=== PATIENT | female | born 1980 | race Caucasian/White ===

== ENCOUNTER 2022-08-30 09:18 | Emergency (ER) | payer MEDICARE, MEDICAID, SELFPAY ==
[2022-08-30 09:32] VITALS: BP 118/75; PULSE 100; RESP 18; TEMP 36.8; O2SAT 96
--- NOTE | 2022-08-30 10:07 | ED.LOWEXIN ---
HPI - Extremity Injury (Lower) General Chief Complaint: Extremity Injury, Lower Stated Complaint: Toe Injury Source: patient and RN notes reviewed History of Present Illness HPI Narrative: 42-year-old female presents to urgent care with complaints of right pinky toe pain. Patient states last night she accidentally stubbed her right pinky toe on a cinder block. Patient states she is unable to get her work shoes on today because of her symptoms. Patient denies any other injury. Denies any numbness or tingling. Patient has ice her toe and taking Aleve at home. Some parts of this dictation were generated by voice recognition software and may contain typographical and/or grammatical inaccuracies. Related Data Home Medications Medication Instructions Recorded Confirmed buprenorphine HCl 8 mg sublingual 8 mg sublingual DAILY 08/30/22 08/30/22 tablet gabapentin 600 mg tablet 600 mg PO TID 08/30/22 08/30/22 lamotrigine 100 mg tablet 100 mg PO DAILY 08/30/22 08/30/22 linaclotide 72 mcg capsule 72 mcg PO DAILY 08/30/22 08/30/22 (Linzess) loratadine 10 mg tablet (Claritin) 10 mg PO DAILY 08/30/22 08/30/22 quetiapine 200 mg tablet 200 mg PO BID 08/30/22 08/30/22 Allergies Allergy/AdvReac Type Severity Reaction Status Date / Time No Known Allergies Allergy Verified 08/30/22 09:47 Review of Systems Review of Systems: CONSTITUTIONAL: Denies fever, chills, or sweats. EYES: Denies visual changes, redness, or discharge. ENT: Denies otalgia and sore throat CARDIOVASCULAR: Denies chest pain, palpitations, or edema. RESPIRATORY: Denies cough or dyspnea. GASTROINTESTINAL: Denies abdominal pain, nausea, vomiting, or diarrhea. GENITOURINARY: Denies dysuria or hematuria. SKIN: Denies rash or itching. MUSCULOSKELETAL: Right pinky toe pain NEUROLOGIC: Denies headache, numbness, or weakness. Pertinent positives per HPI. PMFSH Comments At the time of my signature, I reviewed and agree with the nursing past medical, surgical, social, and family history. There is no relevant family history pertinent to the patient complaint. Exam Narrative: GENERAL: This is a well-nourished, well-developed patient, in no apparent distress. HEAD: normocephalic, atraumatic. EYES: Sclera clear/white. Vision is grossly intact. EARS: External ears normal, auditory canals clear and without drainage. Hearing grossly intact. NOSE: External nose normal with no obvious nasal discharge, nares without redness, no rhinorrhea. THROAT: Mucous membranes moist, posterior pharynx clear. NECK: Neck supple, non-tender without lymphadenopathy, masses or thyromegaly. CARDIOVASCULAR: Regular rate RESPIRATORY: No respiratory distress. SKIN: warm, intact with no suspicious lesions or rash, good texture and turgor. NEURO: awake, alert, and oriented to person, place and time. There were no obvious focal neurologic abnormalities. EXTREMITIES: Right pinky toe edema and tenderness. BACK: Nontender without deformity or crepitus. No flank tenderness. Course Course Level of Care: Express Care Visit Vital Signs Vital signs: Vital Signs Temperature 98.2 F 08/30/22 09:32 Pulse Rate 100 08/30/22 09:32 Respiratory Rate 18 08/30/22 09:32 Blood Pressure 118/75 08/30/22 09:32 Pulse Oximetry 96 08/30/22 09:32 Oxygen Delivery Room Air 08/30/22 09:32 Temperature 98.2 F 08/30/22 09:32 Pulse Rate 100 08/30/22 09:32 Respiratory Rate 18 08/30/22 09:32 Blood Pressure 118/75 08/30/22 09:32 Pulse Oximetry 96 08/30/22 09:32 Oxygen Delivery Room Air 08/30/22 09:32 reviewed MDM - Extremity Injury (Lower) MDM Narrative Medical decision making narrative: Use the RICE method at home. May take ibuprofen and/or Tylenol if needed. If symptoms persist in 1 week after conservative treatment, follow-up with specialist. Pt refused xray. States she is here just for a work note. Differential Diagnosis Differential diagnosis: Likely fract
== END 2022-08-30 10:10 | disposition home or self-care (01) ==
PROVIDERS: Emergency Provider Nurse Practitioner Family; PCP Nurse Practitioner Family
DX: S99.921A Unspecified injury of right foot, initial encounter (principal); W22.8XXA Striking against or struck by other objects, initial encounter; J44.9 Chronic obstructive pulmonary disease, unspecified; G62.9 Polyneuropathy, unspecified; F31.9 Bipolar disorder, unspecified
CPT/HCPCS: 99213; G0463

== ENCOUNTER 2022-09-17 16:04 | Emergency (ER) | payer MEDICARE, MEDICAID, SELFPAY ==
[2022-09-17 16:10] VITALS: BP 136/76; PULSE 99; RESP 20; TEMP 36.4; O2SAT 95
--- NOTE | 2022-09-17 16:10 | ED.SKABFB ---
HPI - Skin/Abscess/Foreign Bdy General Chief complaint: Skin/Abscess/Foreign Body Stated complaint: irritation on buttocks Source: patient and RN notes reviewed History of Present Illness HPI narrative: 42 yo F presents to urgent care stating she thinks she has shingles again. Pt states she woke up this morning with an itchy, burning, rash to her buttocks. Pt states every time she gets this, it's shingles. Pt states she has had it about 5-6 times in the past, last time being 6 months ago. Pt states it occurs in the same spot every time. Denies any fevers, chills, chest pain, SOB, or vomiting. Related Data Home Medications Medication Instructions Recorded Confirmed buprenorphine HCl 8 mg sublingual 8 mg sublingual DAILY 08/30/22 08/30/22 tablet gabapentin 600 mg tablet 600 mg PO TID 08/30/22 08/30/22 lamotrigine 100 mg tablet 100 mg PO DAILY 08/30/22 08/30/22 linaclotide 72 mcg capsule 72 mcg PO DAILY 08/30/22 08/30/22 (Linzess) loratadine 10 mg tablet (Claritin) 10 mg PO DAILY 08/30/22 08/30/22 quetiapine 200 mg tablet 200 mg PO BID 08/30/22 08/30/22 Allergies Allergy/AdvReac Type Severity Reaction Status Date / Time No Known Allergies Allergy Verified 08/30/22 09:47 Review of Systems Review of Systems: CONSTITUTIONAL: Denies fever, chills, or sweats. EYES: Denies visual changes, redness, or discharge. ENT: Denies otalgia and sore throat CARDIOVASCULAR: Denies chest pain, palpitations, or edema. RESPIRATORY: Denies cough or dyspnea. GASTROINTESTINAL: Denies abdominal pain, nausea, vomiting, or diarrhea. GENITOURINARY: Denies dysuria or hematuria. SKIN: rash MUSCULOSKELETAL: Denies back pain, joint pain, or myalgia. NEUROLOGIC: Denies headache, numbness, or weakness. Pertinent positives per HPI. PMFSH Comments At the time of my signature, I reviewed and agree with the nursing past medical, surgical, social, and family history. There is no relevant family history pertinent to the patient complaint. Exam Narrative: GENERAL: This is a well-nourished, well-developed patient, in no apparent distress. HEAD: normocephalic, atraumatic. EYES: Sclera clear/white. Vision is grossly intact. EARS: External ears normal, auditory canals clear and without drainage. Hearing grossly intact. NOSE: External nose normal with no obvious nasal discharge, nares without redness, no rhinorrhea. THROAT: Mucous membranes moist, posterior pharynx clear. NECK: Neck supple, non-tender without lymphadenopathy, masses or thyromegaly. CARDIOVASCULAR: Regular rate and rhythm without murmurs, gallops, or rubs. RESPIRATORY: Clear to auscultation. Breath sounds equal bilaterally. No wheezes, rales, or rhonchi. GASTROINTESTINAL: Abdomen soft, non-tender, nondistended. Bowel sounds are active. No hepato-splenomegaly, or palpable masses. No guarding. SKIN: an erythremic patch of large blisters to top of coccyx and right of coccyx. no drainge. NEURO: awake, alert, and oriented to person, place and time. There were no obvious focal neurologic abnormalities. EXTREMITIES: No clubbing, cyanosis, or edema. No joint tenderness, effusion, or edema noted. BACK: Nontender without deformity or crepitus. No flank tenderness. Course Course Level of Care: Express Care Visit Vital Signs Vital signs: Reviewed MDM - Skin/Abscess/Foreign Bdy MDM Narrative Medical decision making narrative: Take the Valtrex as directed. 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 Differential Diagnosis Differential diagnosis: Likely herpes zoster, cellulitis and contact dermatitis Critical Care Time Critical Care Time Critical Care Time: No Discharge Plan Discharge Clinical Impression: Herpes zoster Qualifiers: Herpes zoster complications: without complications Qualified Code(s): B02.9 - Zoster without complications Patient Disposition: Home, Self-Care Condition: Stable Instructions: Shingles (ED) Additional Instructions: Take the Valt
== END 2022-09-17 16:24 | disposition home or self-care (01) ==
PROVIDERS: Emergency Provider Nurse Practitioner Family; PCP Nurse Practitioner Family
DX: B02.9 Zoster without complications (principal)
CPT/HCPCS: 99213; G0463

== ENCOUNTER 2022-12-02 17:41 | Emergency (ER) | payer MEDICARE, SELFPAY ==
[2022-12-02 17:48] VITALS: BP 128/88; PULSE 93; RESP 20; TEMP 36.4; O2SAT 97
[2022-12-02 17:52] VITALS: BP 128/88; PULSE 93; RESP 20; TEMP 36.4; O2SAT 97
--- NOTE | 2022-12-02 18:00 | ED.ABDPAIN ---
HPI - Abdominal Pain General Chief Complaint: Abdominal Pain Stated Complaint: stomach cramp Time Seen by Provider: 12/02/22 18:00 Source: patient, RN notes reviewed and old records reviewed Mode of arrival: ambulatory Limitations: no limitations History of Present Illness HPI narrative: 42-year-old female presents to the [facility] with complaints of abdominal pain that started just prior to arrival. Patient states that she has a history of IBS with constipation however this pain is worse than her normal discomfort. Last bowel movement was this morning. Normally takes Linzess. States that she has been eating more sunflower seeds. Denies any history of diverticulitis or diverticulosis. Denies diarrhea or fevers. Has had her gallbladder out but states she still has her appendix. Denies any urinary symptoms. No treatment prior to arrival Onset (ago): hour(s) (1) Related Data Home Medications Medication Instructions Recorded Confirmed buprenorphine HCl 8 mg sublingual 8 mg sublingual DAILY 08/30/22 08/30/22 tablet gabapentin 600 mg tablet 600 mg PO TID 08/30/22 08/30/22 lamotrigine 100 mg tablet 100 mg PO DAILY 08/30/22 08/30/22 linaclotide 72 mcg capsule 72 mcg PO DAILY 08/30/22 08/30/22 (Linzess) loratadine 10 mg tablet (Claritin) 10 mg PO DAILY 08/30/22 08/30/22 quetiapine 200 mg tablet 200 mg PO BID 08/30/22 08/30/22 atorvastatin 40 mg tablet mg 12/02/22 quetiapine 400 mg tablet mg 12/02/22 valbenazine 40 mg capsule mg 12/02/22 (Ingrezza) Allergies Allergy/AdvReac Type Severity Reaction Status Date / Time No Known Allergies Allergy Verified 08/30/22 09:47 Review of Systems Review of Systems: All systems reviewed & are unremarkable except as noted in HPI and below Constitutional: Constitutional: Reports no additional constitutional complaints Eyes: Eyes: Reports no additional eye complaints ENT: Reports system reviewed and no additional complaints, except as documented Cardiovascular: Cardiovascular: Reports no additional cardiovascular complaints, Denies chest pain and Denies dyspnea Respiratory: Respiratory: Reports no additional respiratory complaints, Denies chest congestion, Denies cough and Denies dyspnea Gastrointestinal: Gastrointestinal: Reports as per HPI, Reports abdominal pain (Right lower quadrant), Denies nausea and Denies vomiting Musculoskeletal: Musculoskeletal: Reports no additional musculoskeletal complaints Integumentary/Breasts: Skin/Breast: Reports system reviewed and no additional complaints, except as docu Neurologic: Reports system reviewed and no additional complaints, except as documented Psychiatric: Psychiatric: Reports no additional psychiatric complaints Allergic/Immunologic: Allergic/Immunologic: Reports no additional allergic/immunologic complaints PMFSH Past Medical History Medical History (Updated 12/02/22 @ 18:24 by Danuta Atkins APRN) High cholesterol Irritable bowel syndrome with constipation Surgical History Surgical History (Updated 12/02/22 @ 18:10 by Danuta Atkins APRN) Hx of cholecystectomy Comments At the time of my signature, I reviewed and agree with the nursing past medical, surgical, social, and family history. There is no relevant family history pertinent to the patient complaint. Exam Const: General: cooperative, no acute distress, well developed, alert, ill appearing chronically, uncomfortable and well nourished Nutritional Appearance: well nourished and obese Orientation/consciousness: patient oriented x3 Limitations: no limitations HENMT: Head: normal to inspection Ears: hearing grossly normal bilaterally and external ears normal Face/Nose/Sinus: Normal external nose present, Normal nares present, Normal nasal mucous membranes and turbinates present, normal facial exam and face symmetric Face and sinus: normal facial exam and face symmetric Mouth: Yes moist mucous membranes Eyes: General: appearance normal, both e
== END 2022-12-02 18:33 | disposition left against medical advice (07) ==
PROVIDERS: Emergency Provider Nurse Practitioner; PCP Nurse Practitioner Family
DX: R10.31 Right lower quadrant pain (principal)
CPT/HCPCS: 99211; G0463

== ENCOUNTER 2023-02-11 10:43 | Emergency (ER) | payer MEDICARE, MEDICAID, SELFPAY ==
[2023-02-11 10:53] VITALS: BP 123/88; PULSE 92; RESP 20; TEMP 36.2; O2SAT 97
--- NOTE | 2023-02-11 10:55 | ED.GENADULT ---
HPI - General Adult General Chief complaint: Upper Respiratory Infection Stated complaint: Fever/Nausea/Headache Source: patient, RN notes reviewed and old records reviewed Mode of arrival: ambulatory Limitations: no limitations History of Present Illness HPI narrative: 42-year-old female who presents to [facility] with complaints fever, myalgia, fatigue, and slight cough this started yesterday. Patient states fever was 102 yesterday evening. Patient denies chest pain, dizziness, shortness of breath, nausea vomiting. MD complaint: fever Onset (ago): day(s) (1) Related Data Home Medications Medication Instructions Recorded Confirmed buprenorphine HCl 8 mg sublingual 8 mg sublingual DAILY 08/30/22 08/30/22 tablet gabapentin 600 mg tablet 600 mg PO TID 08/30/22 08/30/22 lamotrigine 100 mg tablet 150 mg PO DAILY 08/30/22 08/30/22 linaclotide 72 mcg capsule 72 mcg PO DAILY 08/30/22 08/30/22 (Linzess) loratadine 10 mg tablet (Claritin) 10 mg PO DAILY 08/30/22 08/30/22 atorvastatin 40 mg tablet mg 12/02/22 quetiapine 400 mg tablet 300 mg 12/02/22 valbenazine 40 mg capsule 80 mg 12/02/22 (Ingrezza) famotidine 20 mg tablet mg 02/11/23 montelukast 10 mg tablet mg 02/11/23 Allergies Allergy/AdvReac Type Severity Reaction Status Date / Time No Known Allergies Allergy Verified 02/11/23 10:55 Review of Systems Constitutional: Constitutional: Reports as per HPI, Reports body ache(s), Reports fatigue and Reports fever(s) Eyes: Eyes: Reports no additional eye complaints ENT: Reports system reviewed and no additional complaints, except as documented Cardiovascular: Cardiovascular: Reports no additional cardiovascular complaints Respiratory: Respiratory: Reports as per HPI and Reports cough Neurologic: Reports system reviewed and no additional complaints, except as documented [facility] Past Medical History Medical History (Updated 02/11/23 @ 11:10 by Janelle Cade APRN) High cholesterol Irritable bowel syndrome with constipation Surgical History Surgical History (Updated 12/02/22 @ 18:10 by Danuta Atkins APRN) Hx of cholecystectomy Comments At the time of my signature, I reviewed and agree with the nursing past medical, surgical, social, and family history. There is no relevant family history pertinent to the patient complaint. Exam Const: General: cooperative, healthy appearing, no acute distress and well nourished Nutritional Appearance: well nourished Orientation/consciousness: patient oriented x3 Limitations: no limitations HENMT: Head: normal to inspection and normocephalic Ears: external ears normal, TM's normal bilaterally, mastoids normal and Abnormal EAC present Face/Nose/Sinus: normal facial exam Face and sinus: normal facial exam Mouth: Yes Normal oral and palatal mucosa present, Yes oropharynx normal and Yes moist mucous membranes Throat: posterior oropharynx normal, tonsils normal, uvula midline and no uvular edema Eyes: General: appearance normal, both eyes and all related structures Sclera: sclerae normal Pupils: Equal, round and reactive pupils present Resp: Effort & Inspection: normal respiratory effort, able to speak in complete sentences, no audible wheezes, no cough, no respiratory distress and no retractions Auscultation: clear to auscultation bilaterally, no crackles, no rales, no rhonchi and no wheezes Cardio: Rate: regular rate Rhythm: regular rhythm Skin: General skin exam: normal color and no rashes or lesions noted Neuro: General: patient oriented x3 Cranial nerves: Yes Equal, round and reactive pupils present Psych: Appearance: grossly normal Course Course Emergency Course: Some parts of this dictation were generated by voice recognition software and may contain typographical and/or grammatical inaccuracies. Level of Care: Express Care Visit Vital Signs Vital signs: Vital Signs Temperature 97.1 F L 02/11/23 10:53 Pulse Rate 92 12/05
== END 2023-02-11 11:12 | disposition home or self-care (01) ==
PROVIDERS: Emergency Provider Registered Nurse
DX: J06.9 Acute upper respiratory infection, unspecified (principal); Z20.822 Contact with and (suspected) exposure to COVID-19; E78.00 Pure hypercholesterolemia, unspecified
CPT/HCPCS: 87426; 87804; 99213; C9803; G0463

== ENCOUNTER 2024-04-17 17:46 | Emergency (ER) | payer MEDICARE, MEDICAID, SELFPAY ==
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
--- OUTSIDE RECORDS SUMMARY | 2024-04-17 17:56 | XMS_ITS | Continuity of Care Document ---
Author Organization [facility] Address [address] [place] [address] Phone Care Team Providers Care Obstetric Anaesthetist Name Role Phone No Information Unavailable Unavailable Medications Medication Instructions Dosage Effective Dates (start - stop) Status Comments No Drug Therapy Prescribed Advance Directives Directive Yes / No Effective Date File Name No Information Encounters Encounter Description Practice Location Reason(s) For Visit Diagnoses Date Provider Providers Copied on Encounter [facility], [address] [place] [address], [address], [place] tel:[phone] No Information No Information Family History Family Member Type Diagnosis Age At Onset No Information Payers Payer name Insurance type Covered alliance party ID Authoriza tion(s) No Information Social History Type Description Quantity Date Captured Comments Sex Female Smoking Status No Information Chief Complaint And Reason For Visit No Information History Of Present Illness Encounter Date Complaint History Of Prese nt Illness No Information Medications Administered Medication Instructions Dosage Effective Dates (start - stop) Status Comments No Drug Therapy Prescribed Instructions Date Instruction Additional Infor mation No Information Assessments Type Assessment Date No Information
--- OUTSIDE RECORDS SUMMARY | 2024-04-17 17:56 | XMS_ITS | Data Portability ---
Author Organization [place] [facility] auto[facility] - [facility] [place] Address [address] [place] [address] Assessment Encounter Date Assessment Date Assessment LastModified by Organization Details LastModified Time 10/28/2022 10/28/2022 Pt with diagnosi s noted - pt has tried OTC and Rx treatments without relief. Cleared to advance through our medical Cannabis program. Patient to contact Kenzie or Kim to schedule their next appointment. The documentation details a telehealth encounter with the patient on this date of service. Audio and video communications were used during this encounter to provide a [id number] interactive encounter. Components of this encounter are a culmination of visual and patient-assisted findings. [email or web address] Not available 10/28/2022 13:40:20 11/08/2022 11/08/2022 Pt here with below diagnosis - pt here for evaluation for their condition, evaluation of their medication use, and discussion for alternative treatments. [email or web address] Not available 11/08/2022 10:12:22 Plan of Treatment Reminders Order Date Submit Date Provider Last Modified By Organization Details Last Modified Time Details Appointments None record ed. Lab None record ed. Referral None record ed. Procedures None record ed. Surgeries None record ed. Imaging None record ed. Medication Orders None record ed. Patient TargetsNo targets recorded. Patient Instructions Encounter Date Encounter Id Patient Instructions Last Modified By Organization Details Last Modified Time 10/28/2022 [id number] migraine headach e: care instructions [email or web address] Not available 10/28/2022 13:43:27 11/08/2022 [id number] I have discussed the risks and benefits of Medical Marijuana. Pt understands I am not prescribing this medication. I am certifying that this patient has a condition that is recognized by the state as qualifying for medical marijuana and this recommendation does not constitute a prescription for medical cannabis. Pt understands that my physician written certification form does not guarantee Medical Marijuana certification nor does it endorse the patient as needing medical marijuana. Patient understands that Medical Marijuana is a drug that the federal government has classified cannabis as a Schedule I controlled substance. Schedule 1 substances are defined, in part, as having (1) a high potential for abuse; (2) no currently accepted medical use in treatment in the [place]; and (3) a lack of accepted Safety for use under medical supervision. Federal law prohibits the manufacture, distribution and possession of cannabis even in states, which have modified their state laws to treat cannabis as a medicine. Pt also agrees that me, and the [facility] Team are my treating physicians and that we are in charge of treating the patient's conditions and that the patient will make a good yoon effort to remain under my treatment plan and acknowledge there will be follow up visits from this date forward to monitor the patient's condition. Discussed risks and benefits of Medical Marijuana. I have spent time discussing the patients condition, pain/medical management of the patient given their debilitating condition, the risks and benefits of this medication, a history and physical, gathering old medical records to look at the disease processes being evaluated, and answering of all questions. [email or web address] Not available 11/08/2022 10:12:22 Reason for Referral None Reported. Medical Equipment None Reported. Medications Name Sig Start Date Stop Date Status Note LastModified by Organization Details LastModified Time furosemide 40 mg tablet TAKE 1 TABLET DAILY IN THE MORNING FOR FLUID / SWELLING NEEDED active Not Available Not Available No t Available atorvastatin 40 mg tablet TAKE 1 TABLET BY MOUTH DAILY active Not Available Not Available Not Available oxcarbazepin e 150 mg tablet TAKE 1 TABLET AT BEDTIME ...TAKE WITH 300MG AT BEDTIME active Not Available Not Available N ot Available gabapentin 600 mg tablet TAKE 1 TABLET BY MOUTH THREE TIMES DAILY active Not Available Not Available Not Available ropinirole 1 mg tablet TAKE 1 AND 1/2 TABLETS 2 TIMES A DAY active Not Available Not Available No t Available quetiapine 300 mg tablet TAKE 1 TABLET BY MOUTH AT BEDTIME active Not Available Not Available No t Available valacyclovir 1 gram tablet TAKE 1 TABLET BY MOUTH THREE TIMES DAILY FOR 7 DAYS active Not Available Not Available N ot Available ondansetron HCl 8 mg tablet TAKE 1 TABLET BY MOUTH EVERY 8 HOURS NEEDED FOR NAUSEA OR VOMITING active Not Available Not Available No t Available meloxicam 15 mg tablet TAKE 1 TABLET BY MOUTH EVERY DAY NEEDED FOR PAIN active Not Available Not Available No t Available famotidine 40 mg tablet TAKE 1 TABLET AT BEDTIME FOR ACID REFLUX active Not Available Not Available Not Available isosorbide mononitrate ER 30 mg tablet,exten ded release 24 hr TAKE 1 TABLET DAILY FOR HEART NO REFILLS LEFT () active Not Available Not Available No t Available quetiapine 200 mg tablet TAKE 1 TABLET BY MOUTH AT BEDTIME active Not Available Not Available No t Available hydroxyzine pamoate 50 mg capsule TAKE 1 CAPSULE 2 TIMES A DAY AND TAKE 2 CAPSULES AT BEDTIME DIRECTED active Not Available Not Available No t Available potassium chloride ER 10 mEq tablet,exten ded release TAKE 1 TABLET EVERY OTHER DAY >>TAKE WITH FOOD active Not Available Not Available No t Available oxcarbazepin e 300 mg tablet TAKE 1 TABLET 2 TIMES DAILY active Not Available Not Available Not Available valacyclovir 500 mg tablet TAKE 1 TABLET DAILY AFTER FINISHING THE 1 GM FOR 7 DAYS active Not Available Not Available N ot Available ondansetron 8 mg disintegrati ng tablet DISSOLVE 1 TABLET BY MOUTH EVERY 8 HOURS NEEDED FOR NAUSEA & VOMITING active Not Available Not Available No t Available lamotrigine 25 mg tablet TAKE 4 TABLETS BY MOUTH EVERY DAY active Not Available Not Available No t Available ketorolac 10 mg tablet TAKE 1 TABLET BY MOUTH THREE TIMES DAILY NEEDED active Not Available Not Available No t Available pantoprazole 20 mg tablet,delay ed release TAKE 1 TABLET BY MOUTH DAILY THEN STOP AND. START FAMOTIDINE active Not Available Not Available N ot Available amoxicillin 875 mg tablet TAKE 1 TABLET BY MOUTH TWICE DAILY active Not Available Not Available No t Available famotidine 20 mg tablet TAKE 1 TABLET BY MOUTH DAILY active Not Available Not Available Not Available gabapentin 800 mg tablet TAKE 1 TABLET 3 TIMES A DAY FOR NERVE PAIN NEEDED >>MAY CAUSE DROWSINESS active Not Available Not Available N ot Available baclofen 10 mg tablet TAKE 1 TABLET EVERY 8 HOURS NEEDED FOR MUSCLE SPASMS MAY CAUSE DROWSINESS active Not Available Not Available N ot Available pantoprazole 40 mg tablet,delay ed release TAKE 1 TABLET DAILY FOR STOMACH ...PROTONIX <<<TAKE BEFORE A MEAL active Not Available Not Available No t Available docusate sodium 100 mg capsule TAKE ONE CAPSULE BY MOUTH TWICE DAILY FOR 30 DAYS active Not Available Not Available No t Available estradiol 2 mg tablet TAKE 1 TABLET DAILY active Not Available Not Available No t Available montelukast 10 mg tablet TAKE 1 TABLET BY MOUTH DAILY active Not Available Not Available Not Available ergocalcifer ol (vitamin D2) 1,250 mcg (50,000 unit) capsule TAKE 1 CAPSULE BY MOUTH EVERY WEEK active Not Available Not Available No t Available azelastine 137 mcg (0.1 %) nasal spray INHALE 2 SPRAYS IN EACH NOSTRIL EACH MORNING AND 2 SPRAYS EACH EVENING FOR ALLERGIES active Not Available Not Available No t Available polyethylene glycol 3350 17 gram/dose oral powder MIX 17 GRAMS IN LIQUID AND DRINK BY MOUTH EVERY DAY active Not Available Not Available No t Available ondansetron 4 mg disintegrati ng tablet DISSOLVE 1 TABLET ON THE TONGUE THREE TIMES DAILY FOR 5 DAYS active Not Available Not Available No t Available fluticasone propionate 50 mcg/actuatio n nasal spray,suspen nisha USE 1 SPRAY IN EACH NOSTRIL 2 TIMES DAILY active Not Available Not Available Not Available lamotrigine 100 mg tablet TAKE 1 TABLET BY MOUTH EVERY MORNING active Not Available Not Available No t Available ipratropium bromide 21 mcg (0.03 %) nasal spray USE 2 SPRAYS IN EACH NOSTRIL THREE TIMES DAILY active Not Available Not Available No t Available loratadine 10 mg tablet TAKE 1 TABLET BY MOUTH EVERY DAY active Not Available Not Available No t Available prazosin 2 mg capsule TAKE 1 CAPSULE AT BEDTIME active Not Available Not Available No t Available tobramycin 0.3 %-dexamethas one 0.1 % eye drops,suspen nisha USE 1 DROP IN EYE EVERY 4-6 HOURS FOR 5 DAYS active Not Available Not Available No t Available buprenorphin e HCl 8 mg sublingual tablet DISSOLVE ONE TABLET UNDER THE TONGUE TWICE DAILY active Not Available Not Available Not Available rosuvastatin 20 mg tablet TAKE 1 TABLET DAILY AT BEDTIME FOR BLOOD CHOLESTEROL active Not Available Not Available Not Available escitalopram 5 mg tablet TAKE 1 TABLET DAILY active Not Available Not Available No t Available varenicline tartrate 1 mg tablet TAKE 1 TABLET BY MOUTH TWICE DAILY FOR SMOKING CESSATION active Not Available Not Available No t Available varenicline tartrate 0.5 mg tablet active Not Available Not Available No t Available varenicline tartrate 0.5 mg (11)-1 mg (42) tablets in a dose pack FOLLOW PACKAGE DIRECTIONS active Not Available Not Available N ot Available quetiapine 50 mg tablet TAKE 1 TABLET BY MOUTH TWICE DAILY active Not Available Not Available No t Available quetiapine 400 mg tablet TAKE 1 TABLET EVERY NIGHT AT BEDTIME active Not Available Not Available N ot Available Invega Sustenna 234 mg/1.5 mL intramuscula r syringe active Not Available Not Available No t Available buprenorphin e 8 mg-naloxone [address] 1& 1/2 FILM UNDER TONGUE DAILY DIRECTED active Not Available Not Available No t Available Linzess 290 mcg capsule TAKE 1 CAPSULE EVERY MORNING FOR IBS / CONSTIPATIO N active Not Available Not Available No t Available Linzess 72 mcg capsule TAKE 1 CAPSULE BY MOUTH EVERY DAY active Not Available Not Available No t Available Aimovig Autoinjector 140 mg/mL subcutaneous auto-injecto r INJECT 1 PEN SUBQ ONCE A MONTH .....KEEP REFRIGERATE D active Not Available Not Available No t Available Ubrelvy 100 mg tablet TAKE 1 TABLET AT THE ONSET OF HEADACHE, MAY REPEAT IN 2 HOURS IF NEEDED MAX OF 2 PER DAY active Not Available Not Available No t Available Ingrezza 60 mg capsule active Not Available Not Available N ot Available Vitals None Recorded Social History None recorded. Functional Status None recorded. Mental Status None recorded. Family History Nothing Reported. Medical History No medical history recorded. Gynecological HistoryNo gynecological history recorded. Obstetrics History GPAL:G 0 P 0 0 0 0 Past Encounters Encounter ID Performer Location Encounter Start Date Encounter Closed Date Diagnosis/Indication Diagnosis SNOMED-CT Code Diagnosis ICD10 Code Diagnosis Note [id number] [facility] [address] [place] [address] 10/28/2022 13:32:20 10/28/2022 13:44:10 Migraine [id number] G43.909 [id number] Vannessa Flores MD [facility] [address] [place] [address] 11/08/2022 10:02:43 11/08/2022 10:18:44 Migraine [id number] G43.909 Health Concerns Section Related Observation LastModified by Organization Detai ls LastModified Time None Recorded Concern Status LastModified by Organization Details LastModified Time None Recorded Advance Directives Directive None Recorded Payers Encounter Date Sequence Insurance Name Policy Number Policy Florez Covered Member ID Florez Member ID Guarantor Name 10/28/2022 1 *SELF PAY* Gary Michaels 11/08/2022 1 *SELF PAY* Gary Michaels Notes Date Note Type Note Provider Name and Address Organization Details Recorded Time 10/28/2022 text/html Patient presents via telemedicine for assessment of migraines: Symptoms began: 17 years old Description of symptoms: throbbing pain to posterior head, with associated nausea and vomiting and photophobia. Severity of symptoms: Cannot perform daily activities. Continuous or Intermittent: intermittent 3-4x amonth Things that help: smoking recreational MJ, no other modalities help Things that make it worse: stress, bright lights/sounds. Other providers/speciali sts seen?: PCP and neurologist. OTC meds tried?: tylenol/advil Rx meds tried?: currently on ubrevly, but not helping. Has been on numerous other rx medications H/o surgical intervention?: none JAMAR HO [address], [place], [address], [facility] 10/28/2022 13:43:29 11/08/2022 text/html The patient woul d like to discuss medications, the disease, and how to handle it. Pt would also like to discuss alternative treatments to this condition. Pt was referred here for further evaluation and treatment if necessary. Patient has a diagnosis of qualifying condition - MIGRAINE Vannessa Flores MD [address], [place], [address], [facility] - [facility] 11/08/2022 10:12:53 OBGyn Episode No OBEpisode recorded.
--- OUTSIDE RECORDS SUMMARY | 2024-04-17 17:56 | XMS_ITS | Continuity of Care Document ---
Author Organization [facility] Address [address] [place] [address] Phone Care Team Providers Care Fire Tower Keeper Name Role Phone Petey Villatoro MD Unavailable Unavailable Procedures Procedure Date [facility] Advance Directives Directive Yes / No Effective Date File Name No Information Encounters Encounter Description Practice Location Reason(s) For Visit Diagnoses Date Provider Providers Copied on Encounter SUBSEQU[facility]OSPITAL [facility]ARE [facility], [address], [place], [place], [id number], [place] tel:[phone] [facility] No Information Irving Angelo. [address], [place], [place], [id number], [place]. tel:[phone] Referring Provider: Yehuda aCstelan, [address], [place], [address]. tel:[phone] [facility], [address], [place], [place], [id number], [place] [phone] [facility] No Information Irving Angelo. [address], [address], [place], [place], [id number], [place]. tel:[phone] Referring Provider: Yehuda Castelan, [address], [place], [address]. tel:[phone] Family History Family Member Type Diagnosis Age At Onset No Information Payers Payer name Insurance type Covered green party ID Authoriza tireyna(s) [employer] Of [place] MB [id number] [place] Medicaid [id number] Social History Type Description Quantity Date Captured Comments Sex Female Smoking Status No Information Chief Complaint And Reason For Visit No Information Plan Of Treatment Date Type Action Status No Information History Of Present Illness Encounter Date Complaint History Of Prese nt Illness No Information Instructions Date Instruction Additional Infor mation No Information Assessments Type Assessment Date No Information
--- OUTSIDE RECORDS SUMMARY | 2024-04-17 17:56 | XMS_ITS | Data Portability ---
Author Organization [facility] in [facility] Address [address] [place] [address] Care Team Providers Care Facilities Management Executive Name Role Phone ANN-MARIE PIZARRO Pain Management Unavailable Assessment Encounter Date Assessment Date Assessment LastModified by Organization Details LastModified Time 04/14/2017 04/14/2017 36-year-old patient who presents for follow-up on low back pain. She feels her pain is getting better. The pain is in the lumbar paraspinal region radiating down the bilateral lower extremities to the feet. she states she has numbness and tingling in the lower extremities. She is prescribed [place] 7.5/325 mg twice a day., Zanaflex 4 mg twice a day when necessary, gabapentin 600 mg 3 times a day which provided benefit and no side effects. UDS confirmation 03/14/2017 head no metabolites. No UDS today as patient spilled the cup. She is scheduled for LESI L5/S1 on 04/15/2017. Artie reviewed and appropriate. All questions answered. Moderate risk for abuse/diversion due to anxiety. Follow-up in one month for medical management. Of note: BP 133/100 today, counseled patient follow up with her PCP for this issue. She states she hasn't had any BP medication for 4 days as her BP was running too low. She states she does have lung cancer. blemmons Not available 04/14/2017 13:20:05 06/25/2017 06/25/2017 36-year-old patient presents today for follow-up on back pain. She states the pain is the same as compared to last visit. The pain is located in the bilateral paraspinal lumbar region radiating down the bilateral lower extremities to the feet. She describes the pain as burning, stabbing, constant. She reports numbness and tingling in bilateral legs. She is prescribed [place] 7.5/325 mg twice a day, gabapentin 400 mg 3 times a day, and Zanaflex 4 mg twice a day with benefit and no side effects. She states she can't tell a lot of difference with the gabapentin, will increase to gabapentin 600 mg 3 times a day. Preliminary UDS today negative for all medications, will send for confirmation as patient states she last took [place] 06/24/2017. Prior UDS confirmations appropriate. Moderate risk for abuse/diversion due to anxiety. Patient states she was recently admitted to a psychiatric facility and that is why she missed her last appointment. All questions answered. Artie reviewed and appropriate. Follow-up in one month for medical management. Of note: Patient states she is still commuting from [place] as there have been problems with her move. blemmons Not available 06/25/2017 13:39:06 07/23/2017 07/23/2017 36-year-old patient presents today for follow-up on back pain. She states the pain is the same as compared to last visit. The pain is located in the bilateral paraspinal lumbar region radiating down the bilateral lower extremities to the feet. She describes the pain as aching, sharp, constant. She reports numbness and tingling in bilateral legs. Contacted [facility] in [place] to request records and was informed that patient was hospitalized 8 times in June and twice so far in July and does receive pain medication when she is hospitalized. She is prescribed Zanaflex 4 mg twice a day, [place] 7.5/325 mg twice a day, and gabapentin 600 mg 3 times a day with benefit and no side effects. She is requesting an increase in her [place] which is declined. Will increase to gabapentin 800 mg 3 times a day as patient states she was on 600 mg 3 times a day when it was recorded as 400 mg 3 times a day. Last UDS confirmation negative hydrocodone and gabapentin, counseled patient that this is a failed UDS and her opioid medication will be stopped with continued failed UDS. She voices understanding. preliminary UDS today positive opiates and oxy, will send for confirmation to maintain compliance. At this point in time I consider her high risk for abuse/diversion due to anxiety and multiple hospitalizations . All questions answered. Artie reviewed and appropriate. Follow-up in one month for medical management. Of note: This patient has been discussed with Dr. Pizarro recommends strict compliance monitoring. blemmons Not available 07/23/2017 14:25:12 08/21/2017 08/21/2017 37-year-old patient presents today for follow-up on back pain. She states the pain is the same as compared to last visit. The pain is located in the bilateral paraspinal lumbar region radiating down the bilateral lower extremities to the feet. She describes the pain is burning, throbbing, constant. She reports numbness and tingling in bilateral legs. She states she fell in [place] and fractured her tailbone and was seen at [facility], will request records. She is prescribed [place] 7.5/325 mg twice a day, Zanaflex 4 mg twice a day when necessary, and gabapentin 800 mg 3 times a day with benefit and no side effects. She states the [place] does not last very long. History failed UDS. Last UDS confirmation negative for gabapentin, she states she takes her medications as prescribed. No UDS today. High risk for abuse/diversion due to anxiety and multiple hospitalizations . Strict compliance monitoring recommended. All questions answered. Artie reviewed, patient feels her medications in this state although she has been commuting from [place]. She states she is looking at renting a house here and moving back permanently. Counseled patient that if this time she will be discharged and given one month of her medications. When she establishes residency in [place] and can prove it through utility bills in her name, she will be considered for reinstatement. She requests to change pharmacies and present prescription bottle of cephalexin from a local [facility] but has her address listed as [facility]. when this is questioned she decides not to change pharmacies, but comes agitated and leaves the office. blemmons Not available 08/21/2017 14:38:33 Plan of Treatment Reminders Order Date Submit Date Provider Last Modified By Organization Details Last Modified Time Details Appointments None recorded. Lab opiates, quantitati ve, urine 2017 018 [facility], [address] [place] [address], [address], 8 09:06:40 unlisted lab - depressant drug classes for med monitoring (benzo+8 analytes, gabapentin , pregabalin ,zolipidem , carisoprod ol, kratom, dxm, cital metabolite , amitriptyl ine) 2017 018 [email or web address] 3 [facility], [facility], [address] [place] [address], [address], 8 09:02:48 drug screen, urine [address], [address], 8 14:02:53 opiates, quantitati ve, urine 2017 [facility] [address], [address], 8 11:28:46 unlisted lab - depressant drug classes for med monitoring (benzo+8 analytes, gabapentin , pregabalin ,zolipidem , carisoprod ol, kratom, dxm, cital metabolite , amitriptyl ine) 2017 018 [facility] [address], [address], 8 11:28:48 drug screen, urine [address], [address], 8 16:49:51 Referral None recorded. Procedures None recorded. Surgeries None recorded. Imaging None recorded. Medication Orders [place] 7.5 mg-325 mg tablet 2017 018 INTERFACE [id number], [address] [place], [address], 8 15:04:13 gabapentin 400 mg capsule 2017 018 [email or web address] [facility] #[id number], [address] [place], [address], 8 13:32:37 Zanaflex 4 mg capsule 2017 018 [email or web address] [facility]acy #[id number], [address] [facility], [place], [address], 8 13:18:24 tizanidine 4 mg tablet 2017 018 [facility]/Pharmacy #[id number], [address] [facility], [place], [address], 8 13:42:22 [place] 7.5 mg-325 mg tablet 2017 018 INTERFACE [facility]/Pharmacy #6205, [address] [place], [address], 8 13:41:33 gabapentin 600 mg tablet 2017 018 INTERFACE [facility]armacy #6205, [address] [place], [address], 8 13:39:50 [place] 7.5 mg-325 mg tablet 2017 018 INTERFACE [facility]/Pharmacy #6205, [address] [place], [address], 8 14:44:43 tizanidine 4 mg tablet 2017 018 [facility]/Pharmacy #6205, [address] [place], [address], 8 14:37:49 gabapentin 800 mg tablet 2017 018 INTERFACE [facility]armacy #6205, [address] [place], [address], 8 14:44:46 [place] 7.5 mg-325 mg tablet 2017 018 INTERFACE [facility]/Pharmacy #6205, [address] [place], [address], 8 14:37:57 tizanidine 4 mg tablet 2017 018 INTERFACE [facility]armacy #6205, [address] [facility], [place], [address], 8 14:35:13 gabapentin 800 mg tablet 2017 018 INTERFACE [facility]armacy #6205, [address] [facility], [place], [address], 8 14:36:54 Patient TargetsNo targets recorded. Patient Instructions Encounter Date Encounter Id Patient Instructions Last Modified By Organization Details Last Modified Time 08/21/2017 [id number] medical record request* blemmons Not available 08/21/2017 16:45:29 Reason for Referral None Reported. Results Created Date Observation Date Name Description Value Unit Range Abnormal Flag Note LastModifiedBy Organization Detail LastModifiedTime 06/26/19 18 06/25/2017 antid felicityes sants , quali tativ e, urine comment: See Compon ents normal Presc ribed Medic ation s: [place] (Hydr ocodo ne), Clona zepam (Clon azepa m), Neuro ntin (Philip penti n), Zanaf savannah (--) Not Available [facility], [address], [address], 07/11/2017 09:06:41 06/26/19 18 06/25/2017 drug scree n, urine THC: negati ve Not Available [address], [address], 06/25/2017 13:16:38 06/26/19 18 06/25/2017 drug scree n, urine Buprenorphin e: negati ve Not Available [address], [address], 06/25/2017 13:16:38 06/26/19 18 06/25/2017 drug scree n, urine TCA: negati ve Not Available [address], [address], 06/25/2017 13:16:38 06/26/19 18 06/25/2017 drug scree n, urine Barbiturates : negati ve Not Available [address], [address], 06/25/2017 13:16:38 06/26/19 18 06/25/2017 drug scree n, urine Benzodiazepi trish: negati ve Not Available [address], [address], 06/25/2017 13:16:38 06/26/19 18 06/25/2017 drug scree n, urine Methadone: negati ve Not Available [address], [address], 06/25/2017 13:16:38 06/26/19 18 06/25/2017 drug scree n, urine Amphetamines : negati ve Not Available [address], [address], 06/25/2017 13:16:38 06/26/19 18 06/25/2017 drug scree n, urine Morphine/Opi ates: negati ve Not Available [address], [address], 06/25/2017 13:16:38 06/26/19 18 06/25/2017 drug scree n, urine Oxycodone: negati ve Not Available [address], [address], 06/25/2017 13:16:38 06/26/19 18 06/25/2017 drug scree n, urine MDMA: negati ve Not Available [address], [address], 06/25/2017 13:16:38 06/26/19 18 06/25/2017 drug scree n, urine Cocaine: negati ve Not Available [address], [address], 06/25/2017 13:16:38 06/26/19 18 06/25/2017 drug scree n, urine Methamphetam ine: negati ve Not Available [address], [address], 06/25/2017 13:16:38 06/26/19 18 06/25/2017 depre ssant s commo nweal th butalbital Not Detect ed NG/mL 150 normal Not Available [facility], [address], [address], 07/11/2017 09:06:42 06/26/19 18 06/25/2017 depre ssant s commo nweal th phenobarbita l Not Detect ed NG/mL 150 normal Not Available On license of [facility], [address], [address], 07/11/2017 09:06:42 06/26/19 18 06/25/2017 depre ssant s commo nweal th 7-aminoclona zepam Not Detect ed NG/mL 60 normal Not Available [facility], [address], [address], 07/11/2017 09:06:42 06/26/19 18 06/25/2017 depre ssant s commo nweal th alprazolam Not Detect ed NG/mL 60 normal Not Available [facility], [address], [address], 07/11/2017 09:06:42 06/26/19 18 06/25/2017 depre ssant s commo nweal th alpha-hydrox yalprazolam Not Detect ed NG/mL 60 normal Not Available [facility], [address], [address], 07/11/2017 09:06:42 06/26/19 18 06/25/2017 depre ssant s commo nweal th lorazepam Not Detect ed NG/mL 60 normal Not Available [facility], [address], [address], 07/11/2017 09:06:42 06/26/19 18 06/25/2017 depre ssant s commo nweal th nordiazepam Not Detect ed NG/mL 60 normal Not Available [facility], [address], [address], 07/11/2017 09:06:42 06/26/19 18 06/25/2017 depre ssant s commo nweal th oxazepam Not Detect ed NG/mL 60 normal Not Available On license of [facility], [address], [address], 07/11/2017 09:06:42 06/26/19 18 06/25/2017 depre ssant s commo nweal th temazepam Not Detect ed NG/mL 60 normal Not Available On license of [facility], [address], [address], 07/11/2017 09:06:42 06/26/19 18 06/25/2017 depre ssant s commo nweal th gabapentin Not Detect ed NG/mL 225 normal Not Available On license of [facility], [address], [address], 07/11/2017 09:06:42 06/26/19 18 06/25/2017 depre ssant s commo nweal th pregabalin Not Detect ed NG/mL 225 normal Not Available On license of [facility], [address], [address], 07/11/2017 09:06:42 06/26/19 18 06/25/2017 depre ssant s commo nweal th zaleplon Not Detect ed NG/mL 7.5 normal Not Available On license of [facility], [address], [address], 07/11/2017 09:06:42 06/26/19 18 06/25/2017 depre ssant s commo nweal th zolpidem Not Detect ed NG/mL 75 normal Not Available On license of [facility], [address], [address], 07/11/2017 09:06:42 06/26/19 18 06/25/2017 depre ssant s commo nweal th carisoprodol -soma Not Detect ed NG/mL 75 normal Not Available On license of [facility], [address], [address], 07/11/2017 09:06:42 06/26/19 18 06/25/2017 depre ssant s commo nweal th meprobamate Not Detect ed NG/mL 75 normal Not Available On license of [facility], [address], [address], 07/11/2017 09:06:42 06/26/19 18 06/25/2017 depre ssant s commo nweal th mitragynine Not Detect ed NG/mL 15 normal Not Available On license of [facility], [address], [address], 07/11/2017 09:06:42 06/26/19 18 06/25/2017 depre ssant s commo nweal th dextromethor nichols Not Detect ed NG/mL 75 normal Not Available On license of [facility], [address], [address], 07/11/2017 09:06:42 06/26/19 18 06/25/2017 depre ssant s commo nweal th dextrorphan Not Detect ed NG/mL 75 normal Presc ribed Medic ation s: [place] (Hydr ocodo ne), Clona zepam (Clon azepa m), Neuro ntin (Philip penti n), Zanaf savannah (--) Not Available [facility], [address], [address], 07/11/2017 09:06:42 06/26/19 18 06/25/2017 speci men valid ity testi ng urine creatinine 86 mg/dL 44-355 normal Not Available [facility], [address], [address], 07/11/2017 09:06:41 06/26/19 18 06/25/2017 speci men valid ity testi ng pH 7 4-9 normal Presc ribed Medic ation s: [place] (Hydr ocodo ne), Clona zepam (Clon azepa m), Neuro ntin (Philip penti n), Zanaf savannah (--) Not Available [facility], [address], [address], 07/11/2017 09:06:41 06/26/19 18 06/25/2017 opioi ds commo nweal th buprenorphin e Not Detect ed NG/mL 7.5 normal Not Available On license of [facility], [address], [address], 07/11/2017 09:06:40 06/26/19 18 06/25/2017 opioi ds commo nweal th norbuprenorp allison Not Detect ed NG/mL 37.5 normal Not Available On license of [facility], [address], [address], 07/11/2017 09:06:40 06/26/19 18 06/25/2017 opioi ds commo nweal th fentanyl Not Detect ed NG/mL 6 normal Not Available On license of [facility], [address], [address], 07/11/2017 09:06:40 06/26/19 18 06/25/2017 opioi ds commo nweal th norfentanyl Not Detect ed NG/mL 6 normal Not Available On license of [facility], [address], [address], 07/11/2017 09:06:40 06/26/19 18 06/25/2017 opioi ds commo nweal th methadone Not Detect ed NG/mL 75 normal Not Available [facility], [address], [address], 07/11/2017 09:06:40 06/26/19 18 06/25/2017 opioi ds commo nweal th codeine Not Detect ed NG/mL 75 normal Not Available [facility], [address], [address], 07/11/2017 09:06:40 06/26/19 18 06/25/2017 opioi ds commo nweal th morphine Not Detect ed NG/mL 75 normal Not Available [facility], [address], [address], 07/11/2017 09:06:40 06/26/19 18 06/25/2017 opioi ds commo nweal th hydrocodone Not Detect ed NG/mL 75 normal Not Available [facility], [address], [address], 07/11/2017 09:06:40 06/26/19 18 06/25/2017 opioi ds commo nweal th norhydrocodo ne Not Detect ed NG/mL 75 normal Not Available On license of [facility], [address], [address], 07/11/2017 09:06:40 06/26/19 18 06/25/2017 opioi ds commo nweal th hydromorphon e Not Detect ed NG/mL 75 normal Not Available [facility], [address], [address], 07/11/2017 09:06:40 06/26/19 18 06/25/2017 opioi ds commo nweal th naloxone Not Detect ed NG/mL 75 normal Not Available [facility], [address], [address], 07/11/2017 09:06:40 06/26/19 18 06/25/2017 opioi ds commo nweal th pentazocine Not Detect ed NG/mL 22.5 normal Not Available On license of [facility], [address], [address], 07/11/2017 09:06:40 06/26/19 18 06/25/2017 opioi ds commo nweal th meperidine Not Detect ed NG/mL 37.5 normal Not Available On license of [facility], [address], [address], 07/11/2017 09:06:40 06/26/19 18 06/25/2017 opioi ds commo nweal th normeperidin e Not Detect ed NG/mL 37.5 normal Not Available On license of [facility], [address], [address], 07/11/2017 09:06:40 06/26/19 18 06/25/2017 opioi ds commo nweal th oxycodone Not Detect ed NG/mL 37.5 normal Not Available On license of [facility], [address], [address], 07/11/2017 09:06:40 06/26/19 18 06/25/2017 opioi ds commo nweal th oxymorphone Not Detect ed NG/mL 75 normal Not Available On license of [facility], [address], [address], 07/11/2017 09:06:40 06/26/19 18 06/25/2017 opioi ds commo nweal th propoxyphene Not Detect ed NG/mL 75 normal Not Available On license of [facility], [address], [address], 07/11/2017 09:06:40 06/26/19 18 06/25/2017 opioi ds commo nweal th norpropoxyph ximena Not Detect ed NG/mL 75 normal Not Available On license of [facility], [address], [address], 07/11/2017 09:06:40 06/26/19 18 06/25/2017 opioi ds commo nweal th tapentadol Not Detect ed NG/mL 37.5 normal Not Available On license of [facility], [address], [address], 07/11/2017 09:06:40 06/26/19 18 06/25/2017 opioi ds commo eal th tramadol Not Detect ed NG/mL 75 normal Not Available On license of [facility], [address], [address], 07/11/2017 09:06:40 06/26/19 18 06/25/2017 opioi ds [facility] th Q-qce-kcxkul -cis-tramado l Not Detect ed NG/mL 75 normal Not Available On license of [facility], [address], [address], 07/11/2017 09:06:40 06/26/19 18 06/25/2017 opioi ds commo nweal th noroxycodone Not Detect ed NG/mL 37.5 normal Not Available On license of [facility], [address], [address], 07/11/2017 09:06:40 06/26/19 18 06/25/2017 opioi ds commo nweal th methadone (EDDP) Not Detect ed NG/mL 75 normal Presc ribed Medic ation s: [place] (Hydr ocodo ne), Clona zepam (Clon azepa m), Neuro ntin (Philip penti n), Zanaf savannah (--) Not Available [facility], [address], [address], 07/11/2017 09:06:40 06/26/19 18 06/25/2017 opiat es, quant itati ve, urine comment: See Compon ents normal Pres ribed Medic ation s: [place] (Hydr ocodo ne), Clona zepam (Clon azepa m), Neuro ntin (Philip penti n), Zanaf savannah (--) Not Available [facility], [address], [address], 07/11/2017 09:06:40 07/24/19 18 07/23/2017 antid jennifer arreaga , sarita tativ e, urine comment: See Compon ents normal Pres ribed Medic ation s: [place] (Hydr ocodo ne), Clona zepam (Clon azepa m), Gabap entin (Philip penti n), Zanaf savannah (--) Not Available [facility], [address], [address], 07/30/2017 11:28:48 07/24/19 18 07/23/2017 opiat es, quant itati ve, urine abnormal status abnormal Not Available [facility], [address], [address], 07/30/2017 11:28:49 07/24/19 18 07/23/2017 depre ssant s commo nweal th butalbital Not Detect ed NG/mL 150 normal Not Available On license of [facility], [address], [address], 07/30/2017 11:28:48 07/24/19 18 07/23/2017 depre ssant s commo nweal th phenobarbita l Not Detect ed NG/mL 150 normal Not Available On license of [facility], [address], [address], 07/30/2017 11:28:48 07/24/19 18 07/23/2017 depre ssant s commo nweal th 7-aminoclona zepam Not Detect ed NG/mL 60 normal Not Available On license of [facility], [address], [address], 07/30/2017 11:28:48 07/24/19 18 07/23/2017 deprjian raynt s commo nweal th alprazolam Not Detect ed NG/mL 60 normal Not Available [facility], [address], [address], 07/30/2017 11:28:48 07/24/19 18 07/23/2017 depre corynt s commo nweal th alpha-hydrox yalprazolam Not Detect ed NG/mL 60 normal Not Available [facility], [address], [address], 07/30/2017 11:28:48 07/24/19 18 07/23/2017 depre corynt s commo nweal th lorazepam Not Detect ed NG/mL 60 normal Not Available [facility], [address], [address], 07/30/2017 11:28:48 07/24/19 18 07/23/2017 depre corynt s commo nweal th nordiazepam Not Detect ed NG/mL 60 normal Not Available [facility], [address], [address], 07/30/2017 11:28:48 07/24/19 18 07/23/2017 depre ssant s commo nweal th oxazepam Not Detect ed NG/mL 60 normal Not Available [facility], [address], [address], 07/30/2017 11:28:48 07/24/19 18 07/23/2017 depre ssant s commo nweal th temazepam Not Detect ed NG/mL 60 normal Not Available [facility], [address], [address], 07/30/2017 11:28:48 07/24/19 18 07/23/2017 depre ssant s commo nweal th gabapentin Not Detect ed NG/mL 225 normal Not Available [facility], [address], [address], 07/30/2017 11:28:48 07/24/19 18 07/23/2017 depre ssant s commo nweal th pregabalin Not Detect ed NG/mL 225 normal Not Available [facility], [address], [address], 07/30/2017 11:28:48 07/24/19 18 07/23/2017 depre ssant s commo nweal th zaleplon Not Detect ed NG/mL 7.5 normal Not Available [facility], [address], [address], 07/30/2017 11:28:48 07/24/19 18 07/23/2017 deprjian ssant s commo nweal th zolpidem Not Detect ed NG/mL 75 normal Not Available [facility], [address], [address], 07/30/2017 11:28:48 07/24/19 18 07/23/2017 deprjian ssant s commo nweal th carisoprodol -soma Not Detect ed NG/mL 75 normal Not Available [facility], [address], [address], 07/30/2017 11:28:48 07/24/19 18 07/23/2017 depre ssant s commo nweal th meprobamate Not Detect ed NG/mL 75 normal Not Available [facility], [address], [address], 07/30/2017 11:28:48 07/24/19 18 07/23/2017 depre ssant s commo nweal th mitragynine Not Detect ed NG/mL 15 normal Not Available [facility], [address], [address], 07/30/2017 11:28:48 07/24/19 18 07/23/2017 depre ssant s commo nweal th dextromethor nichols Not Detect ed NG/mL 75 normal Not Available On license of [facility], [address], [address], 07/30/2017 11:28:48 07/24/19 18 07/23/2017 depre ssant s commo nweal th dextrorphan Not Detect ed NG/mL 75 normal Pres ribed Medic ation s: [place] (Hydr ocodo ne), Clona zepam (Clon azepa m), Gabap entin (Philip penti n), Zanaf savannah (--) Not Available Formerly [facility], [address], [address], 07/30/2017 11:28:48 07/24/19 18 07/23/2017 speci men valid ity testi ng urine creatinine 68 mg/dL 44-355 normal Pres rib Medic ation s: [place] (Hydr ocodo ne), Clona zepam (Clon azepa m), Gabap entin (Philip penti n), Zanaf savannah (--) Not Available Formerly [facility], [address], [address], 07/30/2017 11:28:47 07/24/19 18 07/23/2017 opioi ds commo nweal th buprenorphin e Not Detect ed NG/mL 7.5 normal Not Available On license of [facility], [address], [address], 07/30/2017 11:28:47 07/24/19 18 07/23/2017 opioi ds commo nweal th norbuprenorp allison Not Detect ed NG/mL 37.5 normal Not Available On license of [facility], [address], [address], 07/30/2017 11:28:47 07/24/19 18 07/23/2017 opioi ds commo nweal th fentanyl Not Detect ed NG/mL 6 normal Not Available [facility], [address], [address], 07/30/2017 11:28:47 07/24/19 18 07/23/2017 opioi ds commo nweal th norfentanyl Not Detect ed NG/mL 6 normal Not Available [facility], [address], [address], 07/30/2017 11:28:47 07/24/19 18 07/23/2017 opioi ds commo nweal th methadone Not Detect ed NG/mL 75 normal Not Available [facility], [address], [address], 07/30/2017 11:28:47 07/24/19 18 07/23/2017 opioi ds commo nweal th codeine Not Detect ed NG/mL 75 normal Not Available [facility], [address], [address], 07/30/2017 11:28:47 07/24/19 18 07/23/2017 opioi ds commo nweal th morphine Not Detect ed NG/mL 75 normal Not Available [facility], [address], [address], 07/30/2017 11:28:47 07/24/19 18 07/23/2017 opioi ds commo nweal th hydrocodone POSITI VE >5000 NG/mL 75 abnormal Not Available [facility], [address], [address], 07/30/2017 11:28:47 07/24/19 18 07/23/2017 opioi ds commo nweal th norhydrocodo ne Not Detect ed NG/mL 75 normal Not Available [facility], [address], [address], 07/30/2017 11:28:47 07/24/19 18 07/23/2017 opioi ds commo nweal th hydromorphon e Not Detect ed NG/mL 75 normal Not Available On license of [facility], [address], [address], 07/30/2017 11:28:47 07/24/19 18 07/23/2017 opioi ds commo nweal th naloxone Not Detect ed NG/mL 75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
--- OUTSIDE RECORDS SUMMARY | 2024-04-17 17:57 | XMS_ITS | Continuity of Care Document ---
Author Organization [facility] Address [address] [place] [address] Phone Care Team Providers Care Oven Baker Name Role Phone No Information Unavailable Unavailable Medications Medication Instructions Dosage Effective Dates (start - stop) Status Comments No Drug Therapy Prescribed Advance Directives Directive Yes / No Effective Date File Name No Information Encounters Encounter Description Practice Location Reason(s) For Visit Diagnoses Date Provider Providers Copied on Encounter [facility], [address] [place] [address], [address], [place] tel:[phone] No Information No Information Family History Family Member Type Diagnosis Age At Onset No Information Payers Payer name Insurance type Covered green party ID Authoriza tion(s) No Information Social [...]
--- OUTSIDE RECORDS SUMMARY | 2024-04-17 17:57 | XMS_ITS | Continuity of Care Document ---
Author Organization [facility] Address [address] [place] [address] Phone Care Team Providers Care Talent Acquisition Project Manager Name Role Phone Petey Villatoro MD Unavailable [...] Providers Copied on Encounter [facility], [address], [place], [place], [id number], [place] tel:[phone] [facility] No Information Irving Angelo. [address], [address], [place], [place], [id number], [place]. tel:[phone] Referring Provider: Yehuda Castelan, [address], [place], [address]. tel:[phone] [facility], [address], [place], [place], [id number], [place] [phone] [facility] No Information Irving Angelo. [address], [address], [place], [place], [id number], [place]. tel:[phone] Referring Provider: Yehuda Castelan, [address], [place], [address]. tel:[phone] Family History Family Member Type Diagnosis Age At Onset No Information Payers Payer name Insurance type Covered alliance party ID Authoriza tireyna(s) Medicare Of [place] MB [id number] [place] Medicaid [place] [id number] Social History Type Description Quantity Date Captured [...]
[2024-04-17 18:12] VITALS: BP 128/85; PULSE 72; RESP 20; TEMP 37.4; O2SAT 98
[2024-04-17 18:33] LABS: EDCOVIDSCREEN Negative (Negative); EDINFLUASCREEN Negative (Negative); EDINFLUBSCREEN Negative (Negative)
--- NOTE | 2024-04-17 18:42 | ED_ITS ---
HPI - General Adult General Chief complaint: Upper Respiratory Infection Stated complaint: cough,kristina Source: patient Mode of arrival: ambulatory Limitations: no limitations History of Present Illness HPI narrative: Patient presents for evaluation of sick symptoms. Symptom onset 3 days ago. Symptoms include sinus congestion, cough, chills and low grade fever. No nausea, vomiting or diarrhea. She has an underlying history of COPD. She smokes approximately half a pack per day but has not been smoking as of late due to her symptoms. She has been using nebulizer treatments. She has also taken ndaj-rvj-yhwwnsw Aleve. Her son is being evaluated here for similar symptoms. Related Data Home Medications ?Medication ?Instructions ?Recorded ?Confirmed ?Last Taken ?Type buprenorphine HCl 8 mg sublingual 8 mg sublingual DAILY 08/30/22 08/30/22 Unknown History tablet gabapentin 600 mg tablet 600 mg PO TID 08/30/22 08/30/22 Unknown History lamotrigine 100 mg tablet 150 mg PO DAILY 08/30/22 08/30/22 Unknown History linaclotide 72 mcg capsule 72 mcg PO DAILY 08/30/22 08/30/22 Unknown History (Linzess) loratadine 10 mg tablet (Claritin) 10 mg PO DAILY 08/30/22 08/30/22 Unknown History atorvastatin 40 mg tablet mg 12/02/22 Unknown History quetiapine 400 mg tablet 300 mg 12/02/22 Unknown History valbenazine 40 mg capsule 80 mg 12/02/22 Unknown History (Ingrezza) famotidine 20 mg tablet mg 02/11/23 Unknown History montelukast 10 mg tablet mg 02/11/23 Unknown History Allergies Allergy/AdvReac Type Severity Reaction Status Date / Time No Known Allergies Allergy Verified 02/11/23 10:55 Review of Systems Review of Systems: CONSTITUTIONAL: Reports fever and chills. EYES: Denies visual changes, redness, or discharge. ENT: Reports sinus congestion. Denies sore throat otalgia CARDIOVASCULAR: Denies chest pain, palpitations, or edema. RESPIRATORY: Reports cough. GASTROINTESTINAL: Denies abdominal pain, nausea, vomiting, or diarrhea. GENITOURINARY: Denies dysuria or hematuria. SKIN: Denies rash or itching. MUSCULOSKELETAL: Denies back pain, joint pain, or myalgia. NEUROLOGIC: Denies headache, numbness, dizziness, or weakness. PSYCHIATRIC: Denies anxiety or depression. PMFSH Past Medical History Medical History Bipolar disorder COPD (chronic obstructive pulmonary disease) Irritable bowel syndrome with constipation High cholesterol Surgical History Surgical History Hx of cholecystectomy Family History Family History Mother Family history non-contributory Social History Social History Smoking packs per day: 0.5 Smoking cigarettes per day: 10.0 Smoking status: Current every day smoker Tobacco type: cigarettes Living arrangements: with family Gender identity (if verbalized by the patient): Female Spiritual care concerns: No Exam Narrative: GENERAL: Well-appearing, well-nourished, and in no acute distress. HEAD: Normocephalic, atraumatic. EYES: PERRLA and EOMI. ENT: Nares clear, no rhinorrhea or epistaxis. Mucous membranes moist. Oropharynx without tonsillar hypertrophy exudate or other lesions. Bilateral TMs pearly dumas nonbulging NECK: Supple. No adenopathy or masses. No carotid bruits or JVD CHEST: Cough present on exam Clear to auscultation. No respiratory distress. No wheezes rales or rhonchi HEART: Regular rate and rhythm. No murmur heard. Normal peripheral pulses. ABDOMEN: Soft, nontender, nondistended, normal active bowel sounds. EXTREMITIES: Normal range of motion. No edema. SKIN: Warm, dry, no rash. NEURO: No focal deficits. Alert and oriented x3. PSYCH: Normal mood and affect. Course Course Emergency Course: This is a 43-year-old female who presented for evaluation of respiratory symptoms. COVID and influenza negative. Her since COVID influenza were negative also. She was given Solu-Medrol while here. Will discharge with prednisone. Advised on smoking cessation. Thfx-ywe-tjrxbnq agents for symptom management. Follow up with primary provider. Go to the ER for worsening symptoms. Patient in agreement with plan of care. Level of Care: Express Care Visit Vital Signs Vital signs: Vital Signs Temperature 37.4 C 04/17/24 18:12 Pulse Rate 72 04/17/24 18:12 Respiratory Rate 20 04/17/24 18:12 Blood Pressure 128/85 04/17/24 18:12 Pulse Oximetry 98 04/17/24 18:12 Oxygen Delivery Room Air 04/17/24 18:12 Temperature 37.4 C 04/17/24 18:12 Pulse Rate 72 04/17/24 18:12 Respiratory Rate 20 04/17/24 18:12 Blood Pressure 128/85 04/17/24 18:12 Pulse Oximetry 98 04/17/24 18:12 Oxygen Delivery Room Air 04/17/24 18:12 Medical Decision Making Vital Signs Vital Signs: Vital Signs Temperature 37.4 C 04/17/24 18:12 Pulse Rate 72 04/17/24 18:12 Respiratory Rate 20 04/17/24 18:12 Blood Pressure 128/85 04/17/24 18:12 Pulse Oximetry 98 04/17/24 18:12 Oxygen Delivery Room Air 04/17/24 18:12 Temperature 37.4 C 04/17/24 18:12 Pulse Rate 72 04/17/24 18:12 Respiratory Rate 20 04/17/24 18:12 Blood Pressure 128/85 04/17/24 18:12 Pulse Oximetry 98 04/17/24 18:12 Oxygen Delivery Room Air 04/17/24 18:12 Lab Data Labs: Lab Results 04/17/24 Range/Units 18:02 POC Influenza A Ag Negative (Negative) POC Influenza B Ag Negative (Negative) POC SARS CoV-2 Ag Negative (Negative) Discharge Plan Discharge Clinical Impression: Upper respiratory infection, viral Patient Disposition: Home, Self-Care Condition: Stable Instructions: Antibiotic Form, Upper Respiratory Infection (DC), Viral Syndrome (ED) Patient Language: Kittitian Prescriptions: New prednisone 50 mg tablet 50 mg PO DAILY 4 Days Qty: 4 0RF No Action gabapentin 600 mg Tablet 600 mg PO TID lamotrigine 100 mg Tablet 150 mg PO DAILY loratadine [Claritin] 10 mg Tablet 10 mg PO DAILY buprenorphine HCl 8 mg Tablet, Sublingual 8 mg SUBLINGUAL DAILY Linzess 72 mcg Capsule 72 mcg PO DAILY atorvastatin 40 mg tablet quetiapine 400 mg tablet 300 mg Patient Comments: 300 mg extended release Ingrezza 40 mg capsule 80 mg famotidine 20 mg tablet montelukast 10 mg tablet Follow-up/Referrals: [facility]NE[facility]ngel,[facility]care [Primary Care Provider] - Time of Disposition: 19:09
[2024-04-17] MEDS: methylPREDNISolone SOD SUCC 125 MG VIAL IM (19:10)
== END 2024-04-17 19:31 | disposition home or self-care (01) ==
PROVIDERS: Emergency Provider Nurse Practitioner
DX: J06.9 Acute upper respiratory infection, unspecified (principal); Z20.822 Contact with and (suspected) exposure to COVID-19; F17.210 Nicotine dependence, cigarettes, uncomplicated; J44.9 Chronic obstructive pulmonary disease, unspecified; E78.00 Pure hypercholesterolemia, unspecified; F31.9 Bipolar disorder, unspecified
CPT/HCPCS: 87426; 87804; 99213; G0463; J2919

== ENCOUNTER 2024-11-03 16:05 | Emergency (ER) | payer MEDICARE, MEDICAID, SELFPAY ==
--- OUTSIDE RECORDS SUMMARY | 2024-07-17 16:30 | XMS_ITS ---
Author Organization [facility] Address [address] [place] [address] [place], [place] [address] Care Team Providers Care Tank Processor Name Role Phone Kacey Obrien Primary Care Provider Migration, Provider Unavailable Unavailable Allergies Allergen (clinical drug ingredient) Drug/Non Drug Allergy documented on EMR Reaction Allergy Type Onset Date Status Shellfish SHELLFISH (uncoded) difficulty breathing Allergy Active Toradol rash Drug Allergy Active [facility] Encounter Medications Medication SIG (Take, Route, Frequency, Duration) Notes Start Date End Date Status Gabapentin 600 MG 1 tab(s) orally 3 times a day Active PRO AIR 1-2 PUFFS INHALED QID *Please review for potential replacement for e-prescription and drug interaction check* Active Lanoxin 125 MCG 1 tab(s) orally once a day Active Cardizem CD 240 MG 1 cap(s) orally once a day Active Fetzima 40MG 1 ORALLY ONCE DAILY *Please revi ew and pick correct strength-formulation from [facility] options. If intended option is not shown, discontinue and re-order from Quick Search* Active Tricor 145 MG 1 tab(s) orally four times daily takes 1 600mg daily Active Crestor 40 MG 1 tab(s) orally once a day (at bedtime) Active Valium 5 MG 1 tab(s) orally 2 times a day prn Active Encounters Encounter Location Date Provider Diagnosis [facility] [address] [place] [address] [place] [id number] 07/17/2024 Provider Migration Plan Of Treatment No Information Progress Notes * Addy MICHAELS MDOB: 3 (44 yo F)Acc No.[id number]:07/17/2024 Patient: Addy MORRISON Provider: Magdiel Rivas :1980 A ge:43 Y S ex:Female Date:07/17/2024 Address:[id number] Pcp:ML David Subjective: * Chief Complaints: * [facility] . [facility] * Medical History: * Medications: T aking Fetzima 40MG LEVOMILNACIPRAN EXTENDED RELEASE CAPSULES 1 ORALLY ONCE DAILY , Notes to Pharmacist: *Please review and pick correct strength-formulation from [facility] options. If intended option is not shown, discontinue and re-order from Quick Search*, Taking Cardizem CD 240 MG Capsule Extended Release 24 Hour 1 cap(s) orally once a day , Taking Lanoxin 125 MCG Tablet 1 tab(s) orally once a day , Taking PRO AIR ALBUTEROL MDI 1-2 PUFFS INHALED QID , Notes to Pharmacist: *Please review for potential replacement for e-prescription and drug interaction check*, Taking Valium 5 MG Tablet 1 tab(s) orally 2 times a day prn , Taking Crestor 40 MG Tablet 1 tab(s) orally once a day (at bedtime) , Taking Tricor 145 MG Tablet 1 tab(s) orally four times daily , Notes to Pharmacist: takes 1 600mg daily, Taking Gabapentin 600 MG Tablet 1 tab(s) orally 3 times a day * Allergies: T oradol: rash, SHELLFISH: difficulty breathing. Objective: * Vitals: Assessment: Plan: * Treatment: * Images: * Electronic signature of Prov ider Migration on 11/03/2024 at 04:07 PM CDT Sign off status: Pending * Provider: Magdiel Rivas Date: 07/17/2024 Generated for Ethel chung/Geni/Irene on: 11/03/2024 04:07 PM CDT
--- NOTE | ~2024-11-03 | XR_ITS ---
EXAMINATION: XR shoulder RT min 2V DATE: 11/03/2024 16:29 INDICATION: Injury. TECHNIQUE: 4 images of the right shoulder were obtained. COMPARISON: None FINDINGS: No fracture. No dislocation. Bone mineralization is within normal limits. No significant degenerative change. IMPRESSION: No fracture. No dislocation. If symptoms persist or worsen, consider a short-term follow-up study or additional imaging for further assessment. Reviewed, dictated and finalized at location Q. IMPRESSION: No fracture. No dislocation. If symptoms persist or worsen, consider a short-term follow-up study or additio nal imaging for further assessment.
--- OUTSIDE RECORDS SUMMARY | 2024-11-03 16:07 | XMS_ITS | Patient Health Record ---
Author Organization [facility] Address [address] [place] [address] Care Team Providers Care Wharf Tally Clerk Name Role Phone Kacey Reyes Primary Care Provider Allergies Allergen (clinical drug ingredient) Drug/Non Drug Allergy documented on EMR Reaction Allergy Type Onset Date Status Shellfish shellfish (uncoded) difficulty breathing Allergy Active Toradol rash Drug Allergy Active Reason For Referral No Information Medications Medication SIG (Take, Route, Frequency, Duration) Notes Start Date End Date Status gabapentin 600 mg 1 tab(s) orally 3 times a day Active TriCor 145 mg 1 tab(s) orally four times daily takes 1 600mg daily Active Crestor 40 mg 1 tab(s) orally once a day (at bedtime) Active Valium 5 mg 1 tab(s) orally 2 times a day prn Active Cardizem CD 240 mg/24 hours 1 cap(s) orally once a day Active Fetzima 40mg 1 orally once daily Active Pro Air 1-2 puffs inhaled QID Active Lanoxin 125 mcg (0.125 mg) 1 tab(s) orally once a day Active Social History Tobacco Use: Social History Observation Description Date Details (start date - stop date) Current Smoker NA - NA Tobacco Use: Question Answer Notes Are you a: current smoker 1/2-1 ppd Problems Problem Type SNOMED Code ICD Code Onset Dates Problem Status W/U Status Risk Notes Problem Radiculopathy (45137917) Radiculopathy (729.2) Active confirmed Problem Mixed anxiety and depressive disorder (001103821) Depression with anxiety (300.4) Active confirmed Problem Low back pain (949086753) Low back pain (724.2) Active confirmed Problem Insomnia (660055698) INSOMNIA NOS (780.52) Active confirmed Problem Low back pain (733357907) Low back pain (M54.5) Active confirmed Problem Pain in thoracic spine (419061777) Pain in thoracic spine (M54.6) Active confirmed Problem Fall on or from stairs or steps (event) (282708840) Fall (on) (from) unspecified stairs and steps, initial encounter (W10.9XXA) Active confirmed Problem Fall on or from stairs or steps (event) (721382026) Fall (on) (from) unspecified stairs and steps, subsequent encounter (W10.9XXD) Active confirmed Plan Of Treatment No Information Insurance Providers Payer Name Payer Address Payer Phone Subscriber Number Group Number Insured Name Patient Relationship to Insured Coverage Start Date Coverage End Date Medicare [employer] [address] Claims Mechanics JAMAR bloom [id number] Addy Michaels Self - patient is the insured 0 [place] Division of Medicaid [address] [address] [place] [id number] Addy Michaels Self - patient is the insured 4 Medical (General) History Medical History History ICD Code copd degenerative disc disease hyperlipidemia migraines depression/anxiety asthma Surgical History Surgery Date(Month/Year) total hysterectomy scopes on both knees R hand tendon Hospitalization History Reason Date(Month/Year) see surgical Hx psychiatric units
--- OUTSIDE RECORDS SUMMARY | 2024-11-03 16:07 | XMS_ITS | Encounter Summary ---
Author Organization [facility] Address [address] [place] [address] Phone Care Team Providers Care Tool Crib Lead Name Role Phone Anna Oviedo MD Primary Care Provider [phone] Henrietta Egan APRN, FINANCIAL UNDERWRITER Unavailable Reason for Visit * Reason Comments Medication Refill Encounter Details Date Type Department Care Team (Late st Contact Info) Description 07/05/2024 Refill [facility] - [place] [address] [place] [address] Henrietta Egan APRN, FINANCIAL UNDERWRITER [address] [place] [address] Medication Refill Social History Tobacco Use Types Packs/Day Years Used Date Smoking Tobacco: Every Day Cigarettes Smokeless Tobacco: Never Alcohol Use Standard Drinks/Week Comments Not Currently 0 (1 standard drink = 0.6 oz pur e alcohol) Comments No Sex and Gender Information Value Date Recorded Sex Assigned at Not on file Legal Sex Female 2:59 PM CDT Gender Identity Not on file Sexual Orientation Not on file documented as of this encounter Miscellaneous Notes * Telephone Encounter - Shawna Michael RN - 07/05/2024 3:38 PM CDT Medication refilled and signed per [facility] chronic medication standing order for pediatric and adult patients. documented in this encounter Plan of Treatment Not on file documented as of this encounter Visit Diagnoses Diagnosis Irritable bowel syndrome with constipation Irritable bowel syndrome documented in this encounter Care Teams Tool Crib Lead Relationship Specialty Start Date End Date Anna Oviedo MD [address] [place] [id number] PCP - General Family Medicine 01/02/24 Henrietta Egan APRN, FINANCIAL UNDERWRITER [address] [place] [address] Nurse Practitioner Advanced Practice Nurse 01/27/24 documented as of this encounter
--- OUTSIDE RECORDS SUMMARY | 2024-11-03 16:07 | XMS_ITS | Clinical Summary ---
Author Organization [facility] Address [address] [place] [address] Phone Care Team Providers Care Manager Copy Name Role Phone Anna Oviedo MD Primary Care Provider [phone] Henrietta Egan APRN, PORTABLE CANTEEN OPERATOR Unavailable Allergies No known active allergies Medications [...] PAIN 12/29/19 24 Active HYDROcodone-carlos a taminophen ([place]) 7.5-325 MG Tablet [place] 7.5 mg-325 mg tablet Take 1 tablet twice a day by oral route as needed for 30 days. Active Combivent Respimat 20-100 MCG/ACT Aerosol Solution INHALE 1 PUFF BY MOUTH FOUR TIMES DAILY NEEDED FOR COPD EXACERBATION 12/29/19 Active ketoconazole (NIZORAL) 2 % Shampoo 12/29/19 Active lidocaine (LIDODERM) 5 % Patch 12/19/19 Active meloxicam (MOBIC) 15 MG Tablet TAKE [...] ns:Bipolar Mood Disorder Indications: Manic-Depressio n 01/15/20 Active promethazine (PHENERGAN) 25 MG TabletIndicatio ns:Vomiting, unspecified vomiting type, unspecified whether nausea present Take 1 Tablet by mouth every 6 hours as needed for Nausea - 1st line. 30 Tablet 1 01/27/20 24 Active Linzess 290 MCG CapsuleIndicati ons:Irritable bowel syndrome with constipation TAKE 1 CAPSULE BY MOUTH EVERY MORNING BEFORE BREAKFAST 30 Capsule 2 10/19/19 25 Active Linzess 290 MCG CapsuleIndicati ons:Irritable bowel syndrome with constipation TAKE 1 CAPSULE BY MOUTH EVERY MORNING BEFORE BREAKFAST 30 Capsule 2 07/06/19 25 2024 Discontinued Active Problems Problem Noted Date [...] Encounters Date Type Department Care Team Description 10/16/2024 Refill [facility] [address] [place] [phone] Henrietta Egan APRN, CNP Medication Refill 08/23/2024 Telephone [facility] [address] [place] [phone] Henrietta Egan APRN, BUCKY from Last 3 Months Family History Medical [...] Comments Blood Pressure 110/62 02/12/2024 1:10 PM QUALITY IMPROVEMENT CONSULTANT Pulse 86 02/12/2024 1:10 PM QUALITY IMPROVEMENT CONSULTANT Temperature 36.2 C (97.2 F) 02/12/2024 1:10 PM QUALITY IMPROVEMENT CONSULTANT Respiratory Rate 16 02/12/2024 1:10 PM QUALITY IMPROVEMENT CONSULTANT Oxygen Saturation 96% 02/12/2024 1:14 PM QUALITY IMPROVEMENT CONSULTANT Inhaled Oxygen Concentration - - Weight 75.8 kg (167 lb) 01/30/2024 10:10 AM QUALITY IMPROVEMENT CONSULTANT Height 157.5 cm (5' 2) 01/30/2024 10:10 AM QUALITY IMPROVEMENT CONSULTANT Body Mass Index 30.54 01/30/2024 10:10 AM QUALITY IMPROVEMENT CONSULTANT Plan of Treatment Health Maintenance Due Date Last Done Comments Diabetes: Hemoglobin A1c 1980 Hepatitis C Virus (HCV) Screening 1980 Mammogram 1980 TdaP Immunization 1980 Hepatitis B Immunization (1 of 3 - 19+ 3-dose series) 2001 Pneumococcal Immunization Co mbined (1 of 2 - PCV) 2001 Human Papillomavirus (HPV) Immunization (1 - 3-dose SCDM series) 2009 Discussion re Starting/Frequ ency of Mammograms 2022 SARS-COV-2 Immunization ( season) 2023 Influenza Immunization (#1) 2024 Respiratory Syncytial Virus (RSV) Immunization (Adult) (1 - 1-dose 75+ series) 2057 Meningococcal Immunization (ACWY) Aged Out No longer eligible based on patient's age to complete this topic Rotavirus Immunization Aged Out No lo nger eligible based on patient's age to complete this topic Insurance MEDICAID [place] Care Teams Manager Copy Relationship Specialty Start Date End Date Anna Oviedo MD [address] [place] [address] DR CONTRERAS [address] [place] [address] PCP - General Family Medicine 01/02/24 Henrietta Egan APRN, PORTABLE CANTEEN OPERATOR [address] [place] [address] Nurse Practitioner Advanced Practice Nurse 01/27/24
--- OUTSIDE RECORDS SUMMARY | 2024-11-03 16:07 | XMS_ITS | Patient Health Record ---
Author Organization [facility] Address [address] [facility] [place] [id number] Care Team Providers Care Child'S Nurse Name Role Phone Kacey Obrien Primary Care [...] tab(s) orally 3 times a day Active Tricor 145 MG 1 tab(s) orally four times daily takes 1 600mg daily Active Crestor 40 MG 1 tab(s) orally once a day (at bedtime) Active Valium 5 MG 1 tab(s) orally 2 times a day prn Active PRO AIR 1-2 PUFFS INHALED QID *Please review for potential replacement for e-prescription and drug interaction check* Active Lanoxin 125 MCG 1 tab(s) orally once a day Active Cardizem CD 240 MG 1 cap(s) orally once a day Active Fetzima 40MG 1 ORALLY ONCE DAILY *Please revi ew and pick correct strength-formulation from Medispan options. If intended option is not shown, discontinue and re-order from Quick Search* Active Social History Tobacco Use: Social History Observation Description Date Details (start date - stop date) Current Smoker NA - NA Tobacco Use: Question Answer Notes Are you a: current smoker 1/2-1 ppd Problems Problem Type SNOMED Code ICD Code Onset Dates Problem Status W/U Status Risk Notes Problem Radiculopathy (95440148) Radiculopathy (729.2) Active confirmed Problem Mixed anxiety and depressive disorder (056273525) Depression with anxiety (300.4) Active confirmed Problem Low back pain (284603924) Low back pain (724.2) Active confirmed Problem Insomnia (934607774) INSOMNIA NOS (780.52) Active confirmed Problem Low back pain (809356665) Low back pain (M54.5) Active confirmed Problem Pain in thoracic spine (254833460) Pain in thoracic spine (M54.6) Active confirmed Problem Fall on or from stairs or steps (event) (425624578) Fall (on) (from) unspecified stairs and steps, initial encounter (W10.9XXA) Active confirmed Problem Fall on or from stairs or steps (event) (097302382) Fall (on) (from) unspecified stairs and steps, subsequent encounter (W10.9XXD) Active confirmed Encounters Encounter Location Date Provider Diagnosis [address] [id number] 07/17/2024 Provider Migration Plan Of Treatment No Information Insurance Providers Payer Name Payer Address Payer Phone Subscriber Number Group Number Insured Name Patient Relationship to Insured Coverage Start Date Coverage End Date Medicare [employer] [address] Claims JAMAR Ibarra [id number] Addy Michaels Self - patient is the insured 0 [place] [employer] [place] [address] [address] [place] [id number] Addy Michaels Self - patient is the insured 4 Medical (General) History Medical History History ICD Code copd degenerative disc disease hyperlipidemia migraines depression/anxiety asthma Surgical History Surgery Date(Month/Year) total hysterectomy scopes on both knees R hand tendon Hospitalization History Reason Date(Month/Year) see surgical Hx psychiatric units
[2024-11-03 16:11] VITALS: BP 134/61; PULSE 92; RESP 16; TEMP 36.4; O2SAT 100
--- NOTE | 2024-11-03 16:18 | ED.UPPEXIN ---
HPI - Extremity Injury (Upper) General Chief Complaint: Extremity Injury, Upper Stated Complaint: right shoulder pain Time Seen by Provider: 11/03/24 16:19 Source: patient Mode of arrival: ambulatory Limitations: no limitations History of Present Illness HPI narrative: 44 yo F presents with pain to R shoulder. Was wrestling with her son and hurt R shoulder. Saw her PCP appt yesterday for yearly physical and would not see her for shoulder pain. All systems reviewed and negative except as noted above. Related Data Home Medications ?Medication ?Instructions ?Recorded ?Confirmed ?Last Taken ?Type buprenorphine HCl 8 mg sublingual 8 mg sublingual DAILY 08/30/22 08/30/22 Unknown History tablet gabapentin 600 mg tablet 600 mg PO TID 08/30/22 08/30/22 Unknown History lamotrigine 100 mg tablet 150 mg PO DAILY 08/30/22 08/30/22 Unknown History linaclotide 72 mcg capsule 72 mcg PO DAILY 08/30/22 08/30/22 Unknown History (Linzess) loratadine 10 mg tablet (Claritin) 10 mg PO DAILY 08/30/22 08/30/22 Unknown History atorvastatin 40 mg tablet mg 12/02/22 Unknown History quetiapine 400 mg tablet 300 mg 12/02/22 Unknown History valbenazine 40 mg capsule 80 mg 12/02/22 Unknown History (Ingrezza) famotidine 20 mg tablet mg 02/11/23 Unknown History montelukast 10 mg tablet mg 02/11/23 Unknown History Allergies Allergy/AdvReac Type Severity Reaction Status Date / Time No Known Allergies Allergy Verified 11/03/24 16:06 [facility] Past Medical History Medical History Bipolar disorder COPD (chronic obstructive pulmonary disease) Irritable bowel syndrome with constipation High cholesterol Surgical History Surgical History Hx of cholecystectomy Family History Family History Mother Family history non-contributory Social History Social History Smoking packs per day: 0.5 Smoking cigarettes per day: 10.0 Smoking status: Current every day smoker Tobacco type: cigarettes Living arrangements: with family Gender identity (if verbalized by the patient): Female Spiritual care concerns: No Comments At time of signature, agree with nursing past medical, surgical, social and family history. There is no relevant family history pertinent to the presenting complaint. Exam Narrative: GENERAL: This is a well-nourished, well-developed patient, in no apparent distress. HEAD: normocephalic, atraumatic. EYES: PERRL. Sclera clear/white. Vision is grossly intact. EARS: External ears normal NOSE: External nose normal NECK: Neck supple, non-tender without lymphadenopathy, masses or thyromegaly. CARDIOVASCULAR: Regular rate and rhythm without murmurs, gallops, or rubs. RESPIRATORY: Clear to auscultation. Breath sounds equal bilaterally. No wheezes, rales, or rhonchi. SKIN: warm, Dry, intact with no suspicious lesions or rash, good texture and turgor. NEURO: awake, alert, and oriented to person, place and time. There were no obvious focal neurologic abnormalities. EXTREMITIES: Tender to right rhomboid muscle, tenderness to AC joint right shoulder. Decreased range of motion due to pain. Unable to lift up of 90 degree. Course Course Level of Care: Express Care Visit Vital Signs Vital signs: Vital Signs Temperature 36.4 C L 11/03/24 16:11 Pulse Rate 92 11/03/24 16:11 Respiratory Rate 16 11/03/24 16:11 Blood Pressure 134/61 11/03/24 16:11 Pulse Oximetry 100 11/03/24 16:11 Oxygen Delivery Room Air 11/03/24 16:11 Temperature 36.4 C L 11/03/24 16:11 Pulse Rate 92 11/03/24 16:11 Respiratory Rate 16 11/03/24 16:11 Blood Pressure 134/61 11/03/24 16:11 Pulse Oximetry 100 11/03/24 16:11 Oxygen Delivery Room Air 11/03/24 16:11 Reviewed MDM - Extremity Injury (Upper) MDM Narrative Medical decision making narrative: x-ray of right shoulder Is normal. Patient placed in sling. Recommend [id number] pain medication, ice and rest. Will follow up with primary care physician if pain is not improving. Imaging Data My impression: Agree with radiologist Radiologist's impression: EXAMINATION: XR shoulder RT min 2V DATE: 11/03/2024 16:29 INDICATION: Injury. TECHNIQUE: 4 images of the right shoulder were obtained. COMPARISON: None FINDINGS: No fracture. No dislocation. Bone mineralization is within normal limits. No significant degenerative change. IMPRESSION: No fracture. No dislocation. If symptoms persist or worsen, consider a short-term follow-up study or additional imaging for further assessment. Discharge Plan Discharge Clinical Impression: Strain of right shoulder Qualifiers: Encounter type: initial encounter Qualified Code(s): S46.911A - Strain of unspecified muscle, fascia and tendon at shoulder and upper arm level, right arm, initial encounter Patient Disposition: Home Condition: Stable Instructions: Shoulder Sprain (ED) Additional Instructions: the x-ray of your right shoulder was normal. Take Tylenol every 6-8 hours as needed for pain. Apply ice as needed for pain. If pain is not improving in the next 3-4 weeks follow-up with your primary care physician for further evaluation. Patient Language: [place] Island[place] Prescriptions: No Action gabapentin 600 mg Tablet 600 mg PO TID lamotrigine 100 mg Tablet 150 mg PO DAILY loratadine [Claritin] 10 mg Tablet 10 mg PO DAILY buprenorphine HCl 8 mg Tablet, Sublingual 8 mg SUBLINGUAL DAILY Linzess 72 mcg Capsule 72 mcg PO DAILY atorvastatin 40 mg tablet quetiapine 400 mg tablet 300 mg Patient Comments: 300 mg extended release Ingrezza 40 mg capsule 80 mg famotidine 20 mg tablet montelukast 10 mg tablet prednisone 50 mg tablet 50 mg PO DAILY 4 Days Qty: 4 0RF Follow-up/Referrals: [facility] [Primary Care Provider, Unknown] Time of Disposition: 16:52
== END 2024-11-03 16:59 | disposition home or self-care (01) ==
PROVIDERS: Emergency Provider Nurse Practitioner Family
DX: S46.911A Strain of unspecified muscle, fascia and tendon at shoulder and upper arm level, right arm, initial encounter (principal); F17.210 Nicotine dependence, cigarettes, uncomplicated; X58.XXXA Exposure to other specified factors, initial encounter; Y93.72 Activity, wrestling
CPT/HCPCS: 73030; 99213; A4565; G0463

== ENCOUNTER 2024-12-16 11:52 | Emergency (ER) | payer MEDICARE, MEDICAID, SELFPAY ==
--- NOTE | ~2024-12-16 | XR_ITS ---
EXAMINATION: XR chest 2V, 12/16/2024 12:11 CDT HISTORY: cough SOB, +smoker COMPARISON: No comparisons available. Technique: 2 views obtained. Findings: The lungs are clear, no effusion. No pneumothorax. Heart is normal size. Mediastinal and hilar contours are within normal limits. Bony thorax no acute abnormality. Impression: No acute cardiopulmonary abnormality. Reviewed, dictated and finalized at location P. Impression: No acute cardiopulmonary abnormality.
--- NOTE | 2024-12-16 11:58 | ED.URI ---
HPI - URI/Sore Throat General Chief Complaint: Upper Respiratory Infection Stated Complaint: cough/congestion/ears Time Seen by Provider: 12/16/24 12:07 Source: patient, RN notes reviewed and old records reviewed Mode of arrival: ambulatory Limitations: no limitations History of Present Illness HPI Narrative: 44-year-old female presents to the [facility] with complaints of cough, sinus congestion, ear pain for 2 weeks. Patient is a smoker. Did use albuterol 1 time yesterday. States that she has taken all things [id number]. No treatment today history of COPD Onset (ago): week(s) (2) Related Data Home Medications ?Medication ?Instructions ?Recorded ?Confirmed ?Last Taken ?Type buprenorphine HCl 8 mg sublingual 8 mg sublingual DAILY 08/30/22 08/30/22 Unknown History tablet gabapentin 600 mg tablet 600 mg PO TID 08/30/22 08/30/22 Unknown History lamotrigine 100 mg tablet 150 mg PO DAILY 08/30/22 08/30/22 Unknown History linaclotide 72 mcg capsule 72 mcg PO DAILY 08/30/22 08/30/22 Unknown History (Linzess) atorvastatin 40 mg tablet mg 12/02/22 Unknown History quetiapine 400 mg tablet 300 mg 12/02/22 Unknown History valbenazine 40 mg capsule 80 mg 12/02/22 Unknown History (Ingrezza) famotidine 20 mg tablet mg 02/11/23 Unknown History montelukast 10 mg tablet mg 02/11/23 Unknown History atorvastatin 80 mg tablet mg 12/16/24 Unknown History cyclobenzaprine 10 mg tablet mg 12/16/24 Unknown History deutetrabenazine 36 mg mg PO 12/16/24 Unknown History tablet,extended release 24 hr (Austedo XR) deutetrabenazine 42 mg mg PO 12/16/24 Unknown History tablet,extended release 24 hr (Austedo XR) guanfacine 1 mg tablet,extended mg PO 12/16/24 Unknown History release 24 hr hydroxyzine pamoate 25 mg capsule mg 12/16/24 Unknown History pantoprazole 40 mg tablet,delayed mg PO 12/16/24 Unknown History release quetiapine 300 mg tablet,extended mg PO 12/16/24 Unknown History release 24 hr valacyclovir 1 gram tablet mg 12/16/24 Unknown History Allergies Allergy/AdvReac Type Severity Reaction Status Date / Time No Known Allergies Allergy Verified 12/16/24 12:12 Review of Systems Review of Systems: All systems reviewed & are unremarkable except as noted in HPI and below Constitutional: Constitutional: Reports no additional constitutional complaints ENT: Reports as per HPI, Reports otalgia and Reports nasal congestion Cardiovascular: Cardiovascular: Reports no additional cardiovascular complaints, Denies chest pain and Denies dyspnea Respiratory: Respiratory: Reports as per HPI, Reports no additional respiratory complaints, Denies chest congestion, Reports cough and Denies dyspnea Musculoskeletal: Musculoskeletal: Reports no additional musculoskeletal complaints Integumentary/Breasts: Skin/Breast: Reports system reviewed and no additional complaints, except as docu PMFSH Past Medical History Medical History Bipolar disorder COPD (chronic obstructive pulmonary disease) Irritable bowel syndrome with constipation High cholesterol Surgical History Surgical History Hx of cholecystectomy Family History Family History Mother Family history non-contributory Social History Social History Smoking packs per day: 0.5 Smoking cigarettes per day: 10.0 Smoking status: Current every day smoker Tobacco type: cigarettes Living arrangements: with family Gender identity (if verbalized by the patient): Female Spiritual care concerns: No Comments At the time of my signature, I reviewed and agree with the nursing past medical, surgical, social, and family history. There is no relevant family history pertinent to the patient complaint. Exam Const: General: cooperative, no acute distress, well developed, alert, ill appearing chronically and well nourished Nutritional Appearance: well nourished Orientation/consciousness: patient oriented x3 Limitations: no limitations HENMT: Head: normal to inspection Ears: hearing grossly normal bilaterally, external ears normal, TM's normal bilaterally, EAC's normal, mastoids normal and no periauricular adenopathy Mouth: Yes Normal oral and palatal mucosa present, Yes lip normal, Yes tongue normal and Yes moist mucous membranes Throat: posterior oropharynx normal, uvula midline and no uvular edema Eyes: General: appearance normal, both eyes and all related structures Alignment and Position: alignment normal Neck: Neck: normal visual inspection, full ROM, no lymphadenopathy and no meningeal signs Chest: Chest palpation & inspection: normal inspection of the chest Resp: Effort & Inspection: normal respiratory effort and able to speak in complete sentences Auscultation: no crackles, no rales, no rhonchi, no wheezes and diminished lung sounds bilateral in the lower lung guerra Cardio: Rate: regular rate Skin: General skin exam: normal color and no rashes or lesions noted Neuro: General: patient oriented x3, gait normal, moves all extremities and no meningeal signs Cognition (Neuro): normal cognition Speech: normal speech Gait exam (Neuro): Normal gait present Extrem: General: normal to inspection, full ROM, capillary refill normal and normal gait Psych: Appearance: grossly normal and well kempt Mental Status: mental status grossly normal Speech and movement: Normal speech and movement present and Clear speech present Affect: normal affect Attitude: cooperative Course Course Level of Care: Express Care Visit Vital Signs Vital signs: Vital Signs Temperature 98.6 F 12/16/24 12:03 Pulse Rate 100 12/16/24 12:03 Respiratory Rate 24 H 12/16/24 12:03 Blood Pressure 152/82 H 12/16/24 12:03 Pulse Oximetry 100 12/16/24 12:03 Oxygen Delivery Room Air 12/16/24 12:03 Temperature 98.6 F 12/16/24 12:03 Pulse Rate 100 12/16/24 12:03 Respiratory Rate 24 H 12/16/24 12:03 Blood Pressure 152/82 H 12/16/24 12:03 Pulse Oximetry 100 12/16/24 12:03 Oxygen Delivery Room Air 12/16/24 12:03 Reviewed MDM - URI/Sore Throat MDM Narrative Medical decision making narrative: patient sitting in exam room. Patient is nontoxic, vitals stable. Patient with a history of COPD presents with 2 weeks of a cough. Diminished lung sounds without wheezing. Patient's chest x-ray no acute findings patient DuoNeb given lung sounds improved after DuoNeb given patient appropriate for outpatient treatment and follow-up Discharge instructions reviewed with patient, as well as provided in writing per nursing staff. The instructions also include specific and strict return/GO TO THE ER as well as f/u information. All questions have been answered, and the patient deny any further questions with discharge and discharge plan. Some parts of this dictation were generated by voice recognition software and may contain typographical and/or grammatical inaccuracies. Differential Diagnosis Differential diagnosis: Likely upper respiratory infection, otitis media, sinusitis, viral infection, bronchitis, influenza and pharyngitis Critical Care Time Critical Care Time Critical Care Time: No Discharge Plan Discharge Clinical Impression: Bronchitis, History of COPD Patient Disposition: Home Condition: Stable Instructions: Antibiotic Form, Acute Bronchitis (ED) Additional Instructions: Today your blood pressure was 152/82. Please follow-up with your primary care provider within the next 2 weeks. Today the chest x-ray did not show signs of a pneumonia. With her signs and symptoms is most likely inflammation or bronchitis Use your inhaler 3 to 4 times a day on a regular basis. Follow-up with your primary care provider For worsening symptoms go directly to the emergency room Patient Language: Wallisian Prescriptions: New prednisone 20 mg tablet 40 mg PO DAILY 5 Days Qty: 10 0RF doxycycline monohydrate 100 mg tablet 100 mg PO BID Qty: 14 0RF No Action gabapentin 600 mg Tablet 600 mg PO TID lamotrigine 100 mg Tablet 150 mg PO DAILY buprenorphine HCl 8 mg Tablet, Sublingual 8 mg SUBLINGUAL DAILY Linzess 72 mcg Capsule 72 mcg PO DAILY atorvastatin 40 mg tablet quetiapine 400 mg tablet 300 mg Patient Comments: 300 mg extended release Ingrezza 40 mg capsule 80 mg famotidine 20 mg tablet montelukast 10 mg tablet cyclobenzaprine 10 mg tablet valacyclovir 1 gram tablet guanfacine 1 mg tablet extended release 24 hr PO Austedo XR 42 mg tablet extended release 24 hr PO atorvastatin 80 mg tablet pantoprazole 40 mg tablet,delayed release (DR/EC) PO hydroxyzine pamoate 25 mg capsule quetiapine 300 mg tablet extended release 24 hr PO Austedo XR 36 mg tablet extended release 24 hr PO Follow-up/Referrals: Willy,Tyrone Leigh MD [Primary Care Provider, Unknown] - 1 Week Clinical Impression: History of COPD; Bronchitis Time of Disposition: 12:47
[2024-12-16 12:03] VITALS: BP 152/82; PULSE 100; RESP 24; TEMP 37; O2SAT 100
[2024-12-16] MEDS: IPRATROPIUM 0.5 MG/ALBUTEROL SULFATE 2.5 MG (BASE) AMPUL.NEB 3 ML INHALATION (12:23)
== END 2024-12-16 12:55 | disposition home or self-care (01) ==
PROVIDERS: Emergency Provider Nurse Practitioner; PCP Internal Medicine
DX: J40 Bronchitis, not specified as acute or chronic (principal); J44.9 Chronic obstructive pulmonary disease, unspecified; F17.210 Nicotine dependence, cigarettes, uncomplicated; E78.00 Pure hypercholesterolemia, unspecified; F31.9 Bipolar disorder, unspecified
CPT/HCPCS: 71046; 94640; 99213; G0463